=== PATIENT | female | born 1965 | race Caucasian/White ===

== ENCOUNTER 2018-03-31 20:59 | Observation (INO) ==
[2018-04-01] MEDS ORDERED: Ketamine Inj 200 MG/20 ML Vial IV.PUSH STA (00:14)
[2018-04-01] MEDS ORDERED: Sod Chloride 0.9% Inj 1,000 ML IV.SIG ONE (00:14)
--- NOTE | 2018-04-01 00:21 | ED ---
HPI General Chief Complaint: Abdominal Pain Stated Complaint: ABD Pain/GI Complaint Time Seen by Provider: 04/01/18 00:02 Source: patient History of Present Illness HPI narrative: Is a 52-year-old woman who presents emerged from complaining of abdominal pain. States the pain is been ongoing for the past 2 days or so. She has not had similar pain before. The pains in the upper abdomen, migrate some periods associated with nausea and vomiting. She also states that she has had some migration of the pain around the abdomen but sees mostly in the upper abdomen. She drinks heavily intermittently, little bit the day before this started. She has had some dark stools with this as well. No diarrhea. No history of any abdominal surgeries. No history of abdominal problems that she has had to see a doctor for. She otherwise had been feeling generally well and healthy prior to this. Related Data Home Medications Medication Instructions Recorded Confirmed buprenorphine-naloxone [Zubsolv] 5.7 mg SUBLINGUAL BID 03/31/18 03/31/18 Allergies Allergy/AdvReac Type Severity Reaction Status Date / Time No Known Allergies Allergy Uncoded 01/02/15 10:48 Review of Systems ROS Unobtainable All other systems reviewed negative except as stated in HPI [facility] Medical History Medical History Substance abuse (Acute) Surgical History Surgical History Status post surgical manipulation of ankle joint (Acute) Social History Social History Substance History: Past History Second Hand Smoke Exposure: Yes Smoking Status: Light tobacco smoker Tobacco Type: Cigarettes How Often Do You Have a Drink Containing Alcohol: 2 to 3 times a week Recent Travel in [facility] within the Last 8 Weeks: No Recent Out of Country Travel within the Last 8 Weeks: No Substance Abuse Detail Opiates: Substance Use Status: Early Remission Route Used Substance Abuse: By Mouth Immunization History Tetanus Immunization: Unsure Hx Influenza Vaccine This Season: No Exam Narrative Exam Narrative: GENERAL: Well-appearing 52-year-old woman, no acute distress. Some intermittent vomiting. SKIN: Focused skin assessment warm/dry. HEAD: Atraumatic. Normocephalic. EYES: Pupils equal and round. No scleral icterus. No injection or drainage. ENT: No nasal bleeding or discharge. Mucous membranes pink and moist. NECK: Trachea midline. No JVD. CARDIOVASCULAR: Regular rate and rhythm. No murmur appreciated. RESPIRATORY: No accessory muscle use. Clear to auscultation. Breath sounds equal bilaterally. GASTROINTESTINAL: Abdomen is flat and soft. Minimal epigastric right upper quadrant tenderness. No rebound. MUSCULOSKELETAL: No obvious deformities. No clubbing. No cyanosis. No edema. NEUROLOGICAL: Awake and alert. No obvious cranial nerve deficits. Motor grossly within normal limits. Normal speech. PSYCHIATRIC: Appropriate mood and affect; insight and judgment normal. Course Initial Documented Vital Signs Temperature 98.7 F 03/31/18 22:25 Pulse Rate 87 03/31/18 22:25 Respiratory Rate 16 03/31/18 22:25 Blood Pressure 159/76 H 03/31/18 22:25 Pulse Oximetry 99 03/31/18 22:25 Last Documented Vital Signs Temperature 98.7 F 03/31/18 22:25 Pulse Rate 76 03/31/18 22:27 Respiratory Rate 16 03/31/18 22:27 Blood Pressure 172/69 H 03/31/18 22:27 Pulse Oximetry 98 04/01/18 01:06 Medical Decision Making MDM Narrative Medical decision making narrative: 52-year-old woman with epigastric right upper quadrant abdominal pain, suspect pancreatitis. Cholecystitis seems less likely. Gastritis or peptic ulcer disease also possible. She looks well, despite intermittent retching. She is on a Suboxone preparation for history of substance abuse. Will do IV acetaminophen and sub-dissociative dose ketamine. Will do an ultrasound of her gallbladder, labs, reassess. Ultrasound shows a single mobile gallstone. No evidence of cholecystitis. Mildly prominent caliber of the common bile duct for patient this age. Etiology is uncertain pursuing bilirubin is normal probably physiologic. No perceptible duct stone. Patient was reassessed she stated that she felt better , she asked for crackers and something to drink. She was advised on findings, she became nervous and she stated that she would feel more secure knowing that the CAT scan was negative before she went home. She was concerned that her symptoms may return. Urinalysis resulted, urinalysis is consistent with a urinary tract infection. Reflex culture is pending. Patient will be given a gram of Rocephin at this time. CT of the abdomen and pelvis shows biliary and gallbladder distention concerning for distal common bile duct obstruction. Stricture small mass in the distal common bile duct just above the ampulla in the differential. GI referral and ERCP is recommended. Discussed this with my attending physician, Dr. Pace. Patient will be admitted. Dr. Aguilera accepted admit. Lab Data Lab results reviewed: Yes I reviewed the patient's lab results. Result diagrams: 04/01/18 00:46 04/01/18 00:46 Lab Results 04/01/18 04/01/18 04/01/18 Range/Units 00:46 00:46 02:23 WBC 11.7 H (4.0-11.0) th/mm3 RBC 4.79 (4.00-5.30) mil/mm3 Hgb 15.0 (11.6-15.3) gm/dL Hct 44.0 (35.0-46.0) % MCV 91.7 (80.0-100.0) fL MCH 31.3 (27.0-34.0) pg MCHC 34.1 (32.0-36.0) % RDW 13.0 (11.6-17.2) % Plt Count 384 (150-450) th/mm3 MPV 7.8 (7.0-11.0) fL Neut % (Auto) 84.1 H (16.0-70.0) % Lymph % (Auto) 11.8 (9.0-44.0) % [place] % (Auto) 3.5 (0.0-8.0) % Eos % (Auto) 0.2 (0.0-4.0) % Baso % (Auto) 0.4 (0.0-2.0) % Neut # (Auto) 9.8 H (1.8-7.7) th/mm3 Lymph # (Auto) 1.4 (1.0-4.8) th/mm3 [place] # (Auto) 0.4 (0.0-0.9) th/mm3 Eos # (Auto) 0.0 (0.0-0.4) th/mm3 Baso # (Auto) 0.0 (0.0-0.2) th/mm3 WBC Differential . Differential Comment Auto diff final Sodium 139 (136-145) meq/L Potassium 4.0 (3.5-5.1) meq/L Chloride 102 (98-107) meq/L Carbon Dioxide 23.1 (21.0-32.0) meq/L Anion Gap 14 (5-15) meq/L BUN 24 H (7-18) mg/dL Creatinine 0.85 (0.50-1.00) mg/dL Estimated GFR 70 L (>89) mL/min Random Glucose 99 (74-106) mg/dL Calcium 9.7 (8.5-10.1) mg/dL Total Bilirubin 0.4 (0.2-1.0) mg/dL AST 18 (15-37) U/L ALT 23 (10-53) U/L Alkaline Phosphatase 77 (45-117) U/L Total Protein 9.0 H (6.4-8.2) g/dL Albumin 4.6 (3.4-5.0) g/dL Lipase 118 (73-393) U/L Urine Color Yellow (Yellw/Straw) Urine Clarity Hazy H (Clear) Urine pH 5.0 (5.0-8.5) Ur Specific [place] 1.025 (1.002-1.035) Urine Protein 30 H (Neg-Trace) mg/dL Urine Glucose (UA) 50 (Negative) mg/dL Urine Ketones 80 or greater (Negative) mg/dL Urine Occult Blood Small H (Negative) Urine Nitrate Negative (Negative) Urine Bilirubin Negative (Negative) Urine Urobilinogen Less than 2 (Less than 2) mg/dL Ur Leukocyte Esterase Large H (Negative) Urine RBC 15 H (0-3) /hpf Urine WBC 78 H (0-5) /hpf Ur Squamous Epith Cells 2 (0-5) /hpf Hyaline Casts 15 (0-3) /lpf Waxy Casts 3 (None) /lpf Urine Mucus Few H (Occasional) /lpf Micro UA Comment Culture indicated Urine Culture Comments Culture indicated Imaging Data Radiologist's impression: ITS Impressions Gallbladder Ultrasound 04/01/18 00:14 CONCLUSION: 1. Single mobile gallstone. No evidence of cholecystitis. 2. Mildly prominent caliber of the common bile duct for a patient this age, etiology uncertain but assuming bilirubin is normal, probably physiologic. No perceptible duct stone. Abdomen/Pelvis CT 04/01/18 02:40 CONCLUSION: 1. Solitary gallstone. No evidence of cholecystitis. 2. Biliary and gallbladder distention of concern for distal common bile duct obstruction. Stricture or small mass of the distal common bile duct just above the ampulla are in the differential. Gastroenterology referral and ERCP recommended. Discharge Plan Discharge Disposition Patient Disposition: 30 Still Patient Discharge Condition Condition: Stable Discharge Details Discharge Problem: Common bile duct (CBD) obstruction, Nausea & vomiting Physicians Team ED Provider: Harvey Reddy ED Midlevel Provider: Rowan Andrade Primary Care Provider: Primary Care Candy Hay Rxs /Orders / Referrals /Forms Prescriptions: No Action buprenorphine-naloxone [Zubsolv] 5.7-1.4 mg Tablet, Sublingual 5.7 mg SUBLINGUAL BID RF: 0 Discharge Interventions Interventions: Vital Signs Last Done: 03/31/18 22:27 Status ED Status: With Doctor
[2018-04-01 00:53] LABS: Baso % (Auto) 0.4 % (0.0-2.0); Eos % (Auto) 0.2 % (0.0-4.0); Lymph # (Auto) 1.4 th/mm3 (1.0-4.8); Lymph % (Auto) 11.8 % (9.0-44.0); Mean Corpuscular HGB Conc 34.1 % (32.0-36.0); Mean Corpuscular Hemoglobin 31.3 pg (27.0-34.0); Mean Corpuscular Volume 91.7 fL (80.0-100.0); Mean Platelet Volume 7.8 fL (7.0-11.0); Mono # (Auto) 0.4 th/mm3 (0.0-0.9); Mono % (Auto) 3.5 % (0.0-8.0); Neut # (Auto) 9.8 th/mm3 (1.8-7.7); Neut % (Auto) 84.1 % (16.0-70.0); Platelet Count 384 th/mm3 (150-450); Red Blood Count 4.79 mil/mm3 (4.00-5.30); White Blood Count 11.7 th/mm3 (4.0-11.0)
[2018-04-01 01:39] LABS: Alanine Aminotransferase 23 U/L (10-53); Albumin 4.6 g/dL (3.4-5.0); Alkaline Phosphatase 77 U/L (45-117); Anion Gap 14 meq/L (5-15); Aspartate Aminotransferase 18 U/L (15-37); Blood Urea Nitrogen 24 mg/dL (7-18); Calcium 9.7 mg/dL (8.5-10.1); Carbon Dioxide 23.1 meq/L (21.0-32.0); Chloride 102 meq/L (98-107); Glomerular Filtration Rate 70 mL/min (>89); Glucose,Random 99 mg/dL (74-106); Lipase 118 U/L (73-393); Sodium 139 meq/L (136-145)
--- NOTE | 2018-04-01 02:15 | US ---
EXAM DATE: 04/01/2018 1:59 AM EDT AGE/SEX: 52 years / Female INDICATIONS: Right upper quadrant pain. CLINICAL DATA: This is the patient's initial encounter. Patient reports that signs and/or symptoms h ave been present for 2 days and indicates a pain score of 2/10. MEDICAL/SURGICAL HISTORY: . Substance abuse. . Right ankle surgery. COMPARISON: No prior exams available for comparison. MEASUREMENTS: Liver:__ 13.7 cm. Common Bile Duct:__ 7mm. FINDINGS: Liver: Normal echotexture without focal lesion or ductal dilatation. Portal Vein: Hepatopedal flow seen in portal vein. Common Duct: No intraluminal mass or stone visualized. Gallbladder: 16mm mobile stones present within the gallbladder lumen. No wall thickening or perichol ecystic fluid. Pancreas: The visualized portions are within normal limits Right Kidney: Normal echotexture and cortical thickness. No mass or hydronephrosis. Other: None. CONCLUSION: 1. Single mobile gallstone. No evidence of cholecystitis. 2. Mildly prominent caliber of the common bile duct for a patient this age, etiology uncertain but a ssuming bilirubin is normal, probably physiologic. No perceptible duct stone. Electronically signed by: Gray Sam MD 04/01/2018 2:14 AM EDT
[2018-04-01 02:42] LABS: Bilirubin,Urine Negative (Negative); Clarity,Urine Hazy (Clear); Color,Urine Yellow (Yellw/Straw); Glucose,Urine (UA) 50 mg/dL (Negative); Hyaline Casts,Urine 15 /lpf (0-3); Leukocyte Esterase,Urine Large (Negative); Mucus,Urine Few /lpf (Occasional); Nitrite,Urine Negative (Negative); Specific Gravity,Urine 1.025 (1.002-1.035); Squamous Epithelial Cell,Urine 2 /hpf (0-5)
[2018-04-01] MEDS ORDERED: Iohexol 300 MG/ML 100 ML Vial (for Rad CT) IVCONTRAST ONE (02:58)
--- NOTE | 2018-04-01 03:16 | CT ---
EXAM DATE: 04/01/2018 3:00 AM EDT AGE/SEX: 52 years / Female INDICATIONS: Right upper quadrant pain. CLINICAL DATA: This is the patient's initial encounter. Patient reports that signs and symptoms have been present for 1 day and indicates a pain score of 5/10. MEDICAL/SURGICAL HISTORY: None. None. ORAL CONTRAST: No oral contrast ingested. RADIATION DOSE: 6.64 CTDI (mGy) COMPARISON: [facility] [place] - GALLBLADDER, 04/01/2018. . TECHNIQUE: Multiple contiguous axial images were obtained through the abdomen and pelvis following b olus infusion of 95 ml Omnipaque 350 (iohexol) nonionic water-soluble contrast as a single exam dos e. No oral contrast ingested. Using automated exposure control and adjustment of the mA and/or kV ac cording to patient size, radiation dose was kept as low as reasonably achievable to obtain optimal di agnostic quality images. DICOM format image data is available electronically for review and comparis on. FINDINGS: 13 mm gallstone in the gallbladder. Gallbladder mildly distended. Prominent caliber common bile duct, approximately 12 mm at the distal edwardo hepatis. Mildly masslike induration seen just above the ampu lla, measures approximately 14 mm across. Distal duct stricture or mass conceivable. There is mild in trahepatic biliary distention. I don't see a duct stone. Pancreas and pancreatic duct within normal l imits. No liver lesion demonstrated. Spleen, adrenal glands and kidneys within normal limits. No obstruction or acute inflammatory changes are seen of the gastrointestinal tract. Appendix well-vi sualized, normal. No free fluid or free air. No lymphadenopathy. Visualized lung bases are clear. No acute bony abnormality demonstrated. CONCLUSION: 1. Solitary gallstone. No evidence of cholecystitis. 2. Biliary and gallbladder distention of concern for distal common bile duct obstruction. Stricture or small mass of the distal common bile duct just above the ampulla are in the differential. Gastroen terology referral and ERCP recommended. Electronically signed by: Gray Sam MD 04/01/2018 3:15 AM EDT
[2018-04-01] MEDS ORDERED: Ketorolac Inj 30 MG/ML (IVP) Vial IV.PUSH ONE (04:13)
[2018-04-01] MEDS ORDERED: Bisacodyl 10 MG Supp RECTAL PRN (05:05)
[2018-04-01] MEDS ORDERED: Sincalide Inj 5 MCG Vial IV.PUSH ONE (05:06)
[2018-04-01] MEDS ORDERED: Sod Chloride 0.9% Inj 1,000 ML IV.CONT SCH (05:15)
[2018-04-01] MEDS ORDERED: Acetaminophen 325 MG Tablet PO PRN (07:29)
--- NOTE | 2018-04-01 09:23 | P.CONGI ---
History of Present Illness Consult date: 04/01/18 Consult reason: Abdominal pain, melena stools 3 days ago Chief complaint: Obstruction of Common Bile Duct History of Present Illness: This is a 52-year-old female who came into the hospital on 03/31/2018 with abdominal pain onset 3 days now, positive for nausea and vomiting, and does note some melena stools 3 days before admission. Patient also notes some chest discomfort which she now thinks may be dyspepsia 10 days before admission. Patient denies any diarrhea or constipation and has been afebrile since admission. Current labs show hemoglobin 15, WBC count 11.7, lipase and LFTs normal ranges. Patient does note heavy consumption of alcohol for the past 30 years and does smoke cigarettes when she is drinking approximately a half pack a day noted for many years. Patient states she also has marijuana usage and cocaine several days ago to help relieve the pain. Patient does have a history of opioid usage but states none now. Gallbladder ultrasound performed on 2017 showed no cholecystitis but positive for gallstone. CT of abdomen pelvis did show positive biliary and gallbladder distention. Patient denies any family history of colon cancer and according to the record no previous abdominal surgeries. No history of EGD or colonoscopy ever performed. <Sonya Skaggs - Last Filed: 04/01/18 09:23> Review of Systems All other systems reviewed negative except as stated in HPI <Sonya Skaggs - Last Filed: 04/01/18 09:23> PMFSH - History History Provided By: Patient - Medical History Medical History: Medical History (Last Reviewed 04/01/18 @ 00:20 by Harvey Reddy MD) Substance abuse - Surgical History Surgical History: Surgical History (Last Reviewed 04/01/18 @ 00:20 by Harvey Reddy MD) Status post surgical manipulation of ankle joint - Tobacco History Second Hand Smoke Exposure: Yes Tobacco Use In Past 30 Days: Yes Smoking Status: Light tobacco smoker Tobacco Type: Cigarettes - Alcohol History How Often Do You Have a Drink Containing Alcohol: 2 to 3 times a week - Substance Use History Substance History: Past History - Substance Use Type Opiates Status: Early Remission Route Used: By Mouth - Travel History Recent Travel in the [place] Within the Last 8 Weeks: No Recent Travel Out of the Country Within the Last 8 Weeks: No - Immunization History Tetanus Immunization: Unsure Hx Influenza Vaccine This Season: No <Sonya kSaggs - Last Filed: 04/01/18 09:23> - Medical History Medical History: Medical History (Last Reviewed 04/01/18 @ 00:20 by Harvey Reddy MD) Substance abuse - Surgical History Surgical History: Surgical History (Last Reviewed 04/01/18 @ 00:20 by Harvey Reddy MD) Status post surgical manipulation of ankle joint <Ara Morales - Last Filed: 04/01/18 15:26> Medications and Allergies Active Medications: Active Medications Acetaminophen (Tylenol) 650 mg PO Q6H PRN PRN Reason: PAIN SCALE 1-10 Al Hydroxide/Mg Hydroxide (Milk Of Magnesia Liq) 30 ml PO Q12H PRN PRN Reason: Mild Constipation Bisacodyl (Dulcolax Supp) 10 mg RECTAL DAILY PRN PRN Reason: SEVERE CONSITIPATION Ceftriaxone Sodium 1,000 mg/ (Sodium Chloride) 100 mls @ 200 mls/hr IV.SIG Q24H ANTONIO Sodium Chloride (Ns Inj) 1,000 mls @ 100 mls/hr IV.CONT .Q10H ANTONIO Lactulose (Lactulose Liq) 30 ml PO DAILY PRN PRN Reason: SEVERE CONSITIPATION Metoclopramide HCl (Reglan Inj) 5 mg IV.PUSH Q6HR PRN; Protocol PRN Reason: NAUSEA OR VOMITING Sennosides (Senokot) 17.2 mg PO Q12H PRN PRN Reason: Moderate Constipation Sodium Chloride (Ns Flush) 2 ml IV.FLUSH PRN PRN PRN Reason: FLUSH AFTER USING IV ACCESS Last Admin: 04/01/18 00:59 Dose: 2 ml Temazepam (Restoril) 15 mg PO HS PRN PRN Reason: INSOMNIA <Sonya Skaggs - Last Filed: 04/01/18 09:23> Active Medications: Active Medications Acetaminophen (Tylenol) 650 mg PO Q6H PRN PRN Reason: PAIN SCALE 1-2 Al Hydroxide/Mg Hydroxide (Milk Of Magnesia Liq) 30 ml PO Q12H PRN PRN Reason: Mild Constipation Bisacodyl (Dulcolax Supp) 10 mg RECTAL DAILY PRN PRN Reason: SEVERE CONSITIPATION Enalaprilat (Vasotec Inj) 1.25 mg IV.PUSH Q8H PRN PRN Reason: SBP >160, DBP >80 Flumazenil (Romazecon Inj) 0.2 mg IV.PUSH Q1M PRN PRN Reason: OVERSEDATION Haloperidol Lactate (Haldol Inj) 1 mg IV.PUSH Q15M PRN PRN Reason: for severe agitation Ceftriaxone Sodium 1,000 mg/ (Sodium Chloride) 100 mls @ 200 mls/hr IV.SIG Q24H ANTONIO Sodium Chloride (Ns Inj) 1,000 mls @ 100 mls/hr IV.CONT .Q10H ANTONIO Last Admin: 04/01/18 09:25 Dose: 100 mls/hr Ketorolac Tromethamine (Toradol Inj) 15 mg IV.PUSH Q6H PRN PRN Reason: PAIN 6-10 Stop: 04/05/18 09:00 Lactulose (Lactulose Liq) 30 ml PO DAILY PRN PRN Reason: SEVERE CONSITIPATION Lorazepam (Ativan) 1 mg PO Q4H PRN PRN Reason: for CIWA 8-10 Lorazepam (Ativan Inj) 2 mg IV.PUSH Q2H PRN PRN Reason: for CIWA 11-14 Lorazepam (Ativan Inj) 2 mg IV.PUSH Q1H PRN PRN Reason: for CIWA 15-20 Lorazepam (Ativan Inj) 2 mg IV.PUSH Q15M PRN PRN Reason: for CIWA > 20 Lorazepam (Ativan Inj) 1 mg IV.PUSH Q4H PRN PRN Reason: for CIWA 8-10 Lorazepam (Ativan) 2 mg PO Q2H PRN PRN Reason: for CIWA 11-14 Metoclopramide HCl (Reglan Inj) 5 mg IV.PUSH Q6HR PRN; Protocol PRN Reason: NAUSEA OR VOMITING Ondansetron HCl (Zofran Odt) 4 mg PO Q8H PRN PRN Reason: NAUSEA OR VOMITING Pantoprazole Sodium (Protonix Inj) 40 mg IV.PUSH Q24H ANTONIO Sennosides (Senokot) 17.2 mg PO Q12H PRN PRN Reason: Moderate Constipation Sodium Chloride (Ns Flush) 2 ml IV.FLUSH PRN PRN PRN Reason: FLUSH AFTER USING IV ACCESS Last Admin: 04/01/18 00:59 Dose: 2 ml Temazepam (Restoril) 15 mg PO HS PRN PRN Reason: INSOMNIA <Ara Morales - Last Filed: 04/01/18 15:26> Allergies Allergy/AdvReac Type Severity Reaction Status Date / Time No Known Allergies Allergy Uncoded 01/02/15 10:48 Home Medications Medication Instructions Recorded Confirmed Type buprenorphine-naloxone [Zubsolv] 5.7 mg SUBLINGUAL BID 03/31/18 03/31/18 History Exam Vital signs: Vital Signs 03/31/18 22:25 03/31/18 22:27 04/01/18 01:06 Temperature 98.7 F Pulse Rate 87 76 Respiratory Rate 16 16 Blood Pressure 159/76 H 172/69 H Pulse Oximetry 99 96 98 04/01/18 06:36 04/01/18 08:00 Temperature 98.0 F 98.7 F Pulse Rate 58 L 64 Respiratory Rate 17 18 Blood Pressure 148/65 H 133/62 Pulse Oximetry 99 96 Intake & Output 03/31/18 04/01/18 04/01/18 18:59 06:59 18:59 Weight 81 kg Other: # Voids 1 - Constitutional mild distress - Routine HEENT Exam Head: Present: normocephalic, atraumatic Eye: Present: EOMI ENT: Present: mucous membranes moist - Routine Neck Exam Present: supple - Routine Chest/Breast/Axilla Exam Chest wall: Present: tenderness (Mild) - Routine Respiratory Exam Present: CTA bilaterally - Routine Cardiovascular Exam Present: RRR - Routine Abdominal Exam Present: soft, normoactive bowel sounds (Soft), distended (Mild minimal) - Routine Extremities Exam Present: pulses intact - Routine Skin Exam Present: intact - Routine Neurological Exam Present: alert, oriented X3 <Sonya Skaggs - Last Filed: 04/01/18 09:23> Vital signs: Vital Signs 03/31/18 22:25 03/31/18 22:27 04/01/18 01:06 Temperature 98.7 F Pulse Rate 87 76 Respiratory Rate 16 16 Blood Pressure 159/76 H 172/69 H Pulse Oximetry 99 96 98 04/01/18 06:36 04/01/18 08:00 Temperature 98.0 F 98.7 F Pulse Rate 58 L 64 Respiratory Rate 17 18 Blood Pressure 148/65 H 133/62 Pulse Oximetry 99 96 Intake & Output 03/31/18 04/01/18 04/01/18 18:59 06:59 18:59 Weight 81 kg Other: # Voids 1 <Ara Morales - Last Filed: 04/01/18 15:26> Results - Labs CBC & Chem 7: 04/01/18 00:46 04/01/18 00:46 Labs: Laboratory Results - last 24 hr 04/01/18 04/01/18 04/01/18 00:46 00:46 02:23 WBC 11.7 H RBC 4.79 Hgb 15.0 Hct 44.0 MCV 91.7 MCH 31.3 MCHC 34.1 RDW 13.0 Plt Count 384 MPV 7.8 Neut % (Auto) 84.1 H Lymph % (Auto) 11.8 [place] % (Auto) 3.5 Eos % (Auto) 0.2 Baso % (Auto) 0.4 Neut # (Auto) 9.8 H Lymph # (Auto) 1.4 Eagle # (Auto) 0.4 Eos # (Auto) 0.0 Baso # (Auto) 0.0 WBC Differential . Differential Comment Auto diff final Sodium 139 Potassium 4.0 Chloride 102 Carbon Dioxide 23.1 Anion Gap 14 BUN 24 H Creatinine 0.85 Estimated GFR 70 L Random Glucose 99 Calcium 9.7 Total Bilirubin 0.4 AST 18 ALT 23 Alkaline Phosphatase 77 Total Protein 9.0 H Albumin 4.6 Lipase 118 Urine Color Yellow Urine Clarity Hazy H Urine pH 5.0 Ur Specific [place] 1.025 Urine Protein 30 H Urine Glucose (UA) 50 Urine Ketones 80 or greater Urine Occult Blood Small H Urine Nitrate Negative Urine Bilirubin Negative Urine Urobilinogen Less than 2 Ur Leukocyte Esterase Large H Urine RBC 15 H Urine WBC 78 H Ur Squamous Epith Cells 2 Hyaline Casts 15 Waxy Casts 3 Urine Mucus Few H Micro UA Comment Culture indicated Urine Culture Comments Culture indicated - Imaging Impressions Gallbladder Ultrasound 04/01/18 00:14 CONCLUSION: 1. Single mobile gallstone. No evidence of cholecystitis. 2. Mildly prominent caliber of the common bile duct for a patient this age, etiology uncertain but assuming bilirubin is normal, probably physiologic. No perceptible duct stone. Abdomen/Pelvis CT 04/01/18 02:40 CONCLUSION: 1. Solitary gallstone. No evidence of cholecystitis. 2. Biliary and gallbladder distention of concern for distal common bile duct obstruction. Stricture or small mass of the distal common bile duct just above the ampulla are in the differential. Gastroenterology referral and ERCP recommended. <GilesSonya M - Last Filed: 04/01/18 09:23> - Labs CBC & Chem 7: 04/01/18 00:46 04/01/18 00:46 Labs: Laboratory Results - last 24 hr 04/01/18 04/01/18 04/01/18 00:46 00:46 02:23 WBC 11.7 H RBC 4.79 Hgb 15.0 Hct 44.0 MCV 91.7 MCH 31.3 MCHC 34.1 RDW 13.0 Plt Count 384 MPV 7.8 Neut % (Auto) 84.1 H Lymph % (Auto) 11.8 [place] % (Auto) 3.5 Eos % (Auto) 0.2 Baso % (Auto) 0.4 Neut # (Auto) 9.8 H Lymph # (Auto) 1.4 [place] # (Auto) 0.4 Eos # (Auto) 0.0 Baso # (Auto) 0.0 WBC Differential . Differential Comment Auto diff final Sodium 139 Potassium 4.0 Chloride 102 Carbon Dioxide 23.1 Anion Gap 14 BUN 24 H Creatinine 0.85 Estimated GFR 70 L Random Glucose 99 Calcium 9.7 Total Bilirubin 0.4 AST 18 ALT 23 Alkaline Phosphatase 77 Total Protein 9.0 H Albumin 4.6 Lipase 118 Urine Color Yellow Urine Clarity Hazy H Urine pH 5.0 Ur Specific [place] 1.025 Urine Protein 30 H Urine Glucose (UA) 50 Urine Ketones 80 or greater Urine Occult Blood Small H Urine Nitrate Negative Urine Bilirubin Negative Urine Urobilinogen Less than 2 Ur Leukocyte Esterase Large H Urine RBC 15 H Urine WBC 78 H Ur Squamous Epith Cells 2 Hyaline Casts 15 Waxy Casts 3 Urine Mucus Few H Micro UA Comment Culture indicated Urine Culture Comments Culture indicated - Imaging Impressions Bile Acid Absorption NM 04/01/18 00:00 CONCLUSION: 1. Unremarkable HIDA scan with a gallbladder ejection fraction of approximately 50%. 2. There is evidence of some bile reflux. Cholangiopancreatography MRI 04/01/18 00:00 CONCLUSION: 1. There is a gallstone in the gallbladder. The gallbladder is somewhat dilated. 2. There is some dilatation of the common bile duct measuring 9 mm with some mildly dilated biliary ducts. This suggests some degree of biliary tract obstruction. Recommend ERCP for further evaluation. Gallbladder Ultrasound 04/01/18 00:14 CONCLUSION: 1. Single mobile gallstone. No evidence of cholecystitis. 2. Mildly prominent caliber of the common bile duct for a patient this age, etiology uncertain but assuming bilirubin is normal, probably physiologic. No perceptible duct stone. Abdomen/Pelvis CT 04/01/18 02:40 CONCLUSION: 1. Solitary gallstone. No evidence of cholecystitis. 2. Biliary and gallbladder distention of concern for distal common bile duct obstruction. Stricture or small mass of the distal common bile duct just above the ampulla are in the differential. Gastroenterology referral and ERCP recommended. <Ara Morales - Last Filed: 04/01/18 15:26> Assessment and Plan (1) Abdominal pain Status: Acute Code(s): R10.9 - Unspecified abdominal pain (2) Common bile duct (CBD) obstruction Status: Acute Code(s): K83.1 - Obstruction of bile duct (3) Nausea & vomiting Status: Acute Code(s): R11.2 - Nausea with vomiting, unspecified - Plan Dyspepsia, onset approximately 10 days ago which was a pressure sensation in her chest. Never felt this before Melena stools history of 3 days before admission. none currently at this time Abdominal pain onset 3 days ago associated with nausea and vomiting. Patient denies any diarrhea or constipation , afebrile No family history of colon cancer or patient EGD or colonoscopy. Current labs show leukocytosis, possibly related to urinary tract infection with positive urine noted. Hemoglobin 15., lipase and LFTs normal Note ultrasound of the gallbladder showed no: Cystitis but did note gallstones Abdominal pelvic CT did show biliary and gallbladder distention There is a HIDA scan pending but did discuss with attending the need for MRCP to rule out biliary distention or partial obstruction. Patient is hungry and thirsty, May trial clear liquids after testing completed if no current nausea or vomiting Plan Diet n.p.o. for now, Antiemetics PPI Bowel regimen as needed MRCP today Discussed alcohol and drug dependence and abstinence Further recommendations to follow, due to recent history of melena stools and dyspepsia patient may need EGD. Timing TBA Patient was seen per myself and Dr. Morales, this note was written on her behalf <GilesSonya - Last Filed: 04/01/18 09:23> (1) Abdominal pain Status: Acute Code(s): R10.9 - Unspecified abdominal pain (2) Common bile duct (CBD) obstruction Status: Acute Code(s): K83.1 - Obstruction of bile duct (3) Nausea & vomiting Status: Acute Code(s): R11.2 - Nausea with vomiting, unspecified - Attending Attestation The exam, history, and the medical decision-making described in the above note were completed with the assistance of the mid-level provider. I reviewed and agree with the findings presented. I attest that I had a [id number] encounter with the patient on the same day, and personally performed and documented my assessment and findings in the medical record. seen, examined agree with above mrcp, carlos noted -no cbd obstruction or stone discussed about possible ERCP with her -she would like to try some food consult general surgery monitor lfts ercp/eus in vs op depends on clinical scenario <Ara Morales - Last Filed: 04/01/18 15:26> <Sonya Skaggs M - Last Filed: 04/01/18 09:23> (3) Nausea & vomiting Qualifiers: Vomiting type: unspecified Vomiting Intractability: non-intractable Qualified Code(s): R11.2 - Nausea with vomiting, unspecified <Ara Morales - Last Filed: 04/01/18 15:26> (1) Abdominal pain Qualifiers: Abdominal location: unspecified location Qualified Code(s): R10.9 - Unspecified abdominal pain (3) Nausea & vomiting Qualifiers: Vomiting type: unspecified Vomiting Intractability: non-intractable Qualified Code(s): R11.2 - Nausea with vomiting, unspecified
--- NOTE | 2018-04-01 09:38 | P.HP ---
History of Present Illness Service: [facility] Primary Care Physician: No Primary Care Physician Chief Complaint: abdominal pain History of Present Illness: Mrs. Connelly is a 52 yo F with H substance abuse, alcohol abuse who presents with abdominal pain. Patient states that the abdominal pain started 2.5 days ago and was associated with nausea/vomiting. It started suddenly and she does not think it was associated with oral intake. Patient has not had BM for 3 days. No fevers or chills. She has not had prior abdominal surgery. Patient reports smoking 1/2 PPD. Patient reports sometimes drinking 10 beers a day; she also has been doing cocaine occasionally. She receives opiate agonist/ antagonist from pain clinic currently; no recent opiate abuse. Patient reports chest pain with activity 1.5 weeks ago but not since. Normal respirations. Patient occasionally has urinary frequency with alcohol intake but no dysuria. Interval history: Patient with HTN on admission but otherwise normal VS. CBC with mild leukocytosis, UA suggestive of UTI, CMP unremarkable. Gallbladder US showed stone; CT abdomen/pelvis suggestive of common duct pathology. Patient reports that her pain is now resolved after Toradol in ED - Diagnosis (1) Abdominal pain (2) Substance abuse Inpatient Certification: I certify that the inpatient services were ordered in accordance with Medicare regulations governing the order. This includes certification that hospital inpatient services are reasonable and necessary and in the case of services not specified as inpatient-only under 42 CFR 419.22(n), that they are appropriately provided as inpatient services in accordance to with the 2-midnight benchmark under 43 CFR 412.3(e) Review of Systems Constitutional: Denies chills, Denies fatigue, Denies fever(s) Eyes: Denies blurry vision, Denies dry eyes Ears, Nose, Mouth, and Throat: Denies difficulty swallowing, Denies dizziness Cardiovascular: Denies chest pain (1.5 weeks ago, not since), Denies lightheadedness Respiratory: Denies shortness of breath, Denies wheezing Gastrointestinal: Reports abdominal pain, Denies incontinent of stools Genitourinary: Reports urinary urgency, Denies painful urination Musculoskeletal: Denies abnormal walking, Denies joint pain Skin/Breast: Denies breast pain, Denies change in skin color Neurologic: Denies abnormal movements, Denies frequent falls Psychiatric: Reports other (patient tearful recalling past; interested in psych resources on discharge), Denies memory loss Endocrine: Reports increased urination, Denies cold intolerance Hematologic/Lymphatic: Denies easy bleeding, Denies easy bruising PMFSH - History History Provided By: Patient - Medical History Medical History: Medical History (Last Reviewed 04/01/18 @ 00:20 by Harvey Reddy MD) Substance abuse - Surgical History Surgical History: Surgical History (Last Updated 04/01/18 @ 11:18 by To Liu MD) Status post surgical manipulation of ankle joint - Tobacco History Second Hand Smoke Exposure: Yes Tobacco Use In Past 30 Days: Yes Smoking Status: Light tobacco smoker Tobacco Type: Cigarettes - Alcohol History How Often Do You Have a Drink Containing Alcohol: 2 to 3 times a week - Substance Use History Substance History: Past History - Substance Use Type Opiates Status: Early Remission Route Used: By Mouth - Travel History Recent Travel in the [facility] Within the Last 8 Weeks: No Recent Travel Out of the Country Within the Last 8 Weeks: No - Immunization History Tetanus Immunization: Unsure Hx Influenza Vaccine This Season: No Medications and Allergies Active Medications: Active Medications Acetaminophen (Tylenol) 650 mg PO Q6H PRN PRN Reason: PAIN SCALE 1-10 Al Hydroxide/Mg Hydroxide (Milk Of Magnesia Liq) 30 ml PO Q12H PRN PRN Reason: Mild Constipation Bisacodyl (Dulcolax Supp) 10 mg RECTAL DAILY PRN PRN Reason: SEVERE CONSITIPATION Ceftriaxone Sodium 1,000 mg/ (Sodium Chloride) 100 mls @ 200 mls/hr IV.SIG Q24H ANTONIO Sodium Chloride (Ns Inj) 1,000 mls @ 100 mls/hr IV.CONT .Q10H ANTONIO Last Admin: 04/01/18 09:25 Dose: 100 mls/hr Lactulose (Lactulose Liq) 30 ml PO DAILY PRN PRN Reason: SEVERE CONSITIPATION Metoclopramide HCl (Reglan Inj) 5 mg IV.PUSH Q6HR PRN; Protocol PRN Reason: NAUSEA OR VOMITING Sennosides (Senokot) 17.2 mg PO Q12H PRN PRN Reason: Moderate Constipation Sodium Chloride (Ns Flush) 2 ml IV.FLUSH PRN PRN PRN Reason: FLUSH AFTER USING IV ACCESS Last Admin: 04/01/18 00:59 Dose: 2 ml Temazepam (Restoril) 15 mg PO HS PRN PRN Reason: INSOMNIA Allergies Allergy/AdvReac Type Severity Reaction Status Date / Time No Known Allergies Allergy Uncoded 01/02/15 10:48 Home Medications Medication Instructions Recorded Confirmed Type buprenorphine-naloxone [Zubsolv] 5.7 mg SUBLINGUAL BID 03/31/18 03/31/18 History Exam Vital signs: Vital Signs 03/31/18 22:25 03/31/18 22:27 04/01/18 01:06 Temperature 98.7 F Pulse Rate 87 76 Respiratory Rate 16 16 Blood Pressure 159/76 H 172/69 H Pulse Oximetry 99 96 98 04/01/18 06:36 04/01/18 08:00 Temperature 98.0 F 98.7 F Pulse Rate 58 L 64 Respiratory Rate 17 18 Blood Pressure 148/65 H 133/62 Pulse Oximetry 99 96 Intake & Output 03/31/18 04/01/18 04/01/18 18:59 06:59 18:59 Weight 81 kg Other: # Voids 1 Narrative: Gen: No distress Eyes: EOM grossly I Skin: No visible jaundice or other pathology CV: Regular rate and rhythm; Grossly normal perfusion. Resp: CTAB; normal rate Abd: soft, nontender. Normal liver span MSK: No calf tenderness or leg asymmetry Neuro: Grossly normal CN; grossly normal peripheral motor/sensory function Psych: intermittently tearful during exam; suggests possible depression but states that she does not want to address currently Results - Labs CBC & Chem 7: 04/01/18 00:46 04/01/18 00:46 Labs: Laboratory Results - last 24 hr 04/01/18 04/01/18 04/01/18 00:46 00:46 02:23 WBC 11.7 H RBC 4.79 Hgb 15.0 Hct 44.0 MCV 91.7 MCH 31.3 MCHC 34.1 RDW 13.0 Plt Count 384 MPV 7.8 Neut % (Auto) 84.1 H Lymph % (Auto) 11.8 [place] % (Auto) 3.5 Eos % (Auto) 0.2 Baso % (Auto) 0.4 Neut # (Auto) 9.8 H Lymph # (Auto) 1.4 [place] # (Auto) 0.4 Eos # (Auto) 0.0 Baso # (Auto) 0.0 WBC Differential . Differential Comment Auto diff final Sodium 139 Potassium 4.0 Chloride 102 Carbon Dioxide 23.1 Anion Gap 14 BUN 24 H Creatinine 0.85 Estimated GFR 70 L Random Glucose 99 Calcium 9.7 Total Bilirubin 0.4 AST 18 ALT 23 Alkaline Phosphatase 77 Total Protein 9.0 H Albumin 4.6 Lipase 118 Urine Color Yellow Urine Clarity Hazy H Urine pH 5.0 Ur Specific Rembrandt 1.025 Urine Protein 30 H Urine Glucose (UA) 50 Urine Ketones 80 or greater Urine Occult Blood Small H Urine Nitrate Negative Urine Bilirubin Negative Urine Urobilinogen Less than 2 Ur Leukocyte Esterase Large H Urine RBC 15 H Urine WBC 78 H Ur Squamous Epith Cells 2 Hyaline Casts 15 Waxy Casts 3 Urine Mucus Few H Micro UA Comment Culture indicated Urine Culture Comments Culture indicated - Imaging Impressions Gallbladder Ultrasound 04/01/18 00:14 CONCLUSION: 1. Single mobile gallstone. No evidence of cholecystitis. 2. Mildly prominent caliber of the common bile duct for a patient this age, etiology uncertain but assuming bilirubin is normal, probably physiologic. No perceptible duct stone. Abdomen/Pelvis CT 04/01/18 02:40 CONCLUSION: 1. Solitary gallstone. No evidence of cholecystitis. 2. Biliary and gallbladder distention of concern for distal common bile duct obstruction. Stricture or small mass of the distal common bile duct just above the ampulla are in the differential. Gastroenterology referral and ERCP recommended. Caprini VTE Risk Assessment Caprini VTE Risk Assessment: Moderate/High Risk (score >= 2) Caprini Risk Assessment Model: Point Value = 1 Point Value = 2 Point Value = 3 Point Value = 5 Age 41-60 Minor surgery BMI > 25 kg/m2 Swollen legs Varicose veins or History of unexplained or recurrent spontaneous Oral contraceptives or hormone replacement Sepsis (< 1 month) Serious lung disease, including pneumonia (< 1 month) Abnormal pulmonary function Acute myocardial infarction Congestive heart failure (< 1 month) History of inflammatory bowel disease Medical patient at bed rest Age 61-74 Arthroscopic surgery Major open surgery (> 45 min) Laparoscopic surgery (> 45 min) Malignancy Confined to bed (> 72 hours) Immobilizing plaster cast Central venous access Age >= 75 History of VTE Family history of VTE Factor V Leiden Prothrombin [id number] Lupus anticoagulant Anticardiolipin antibodies Elevated serum homocysteine Heparin-induced thrombocytopenia Other congenital or acquired thrombophilia Stroke (< 1 month) Elective arthroplasty Hip, pelvis, or leg fracture Acute spinal cord injury (< 1 month) Prophylaxis Regimen: Total Risk Factor Score Risk Level Prophylaxis Regimen 0-1 Low Early ambulation 2 Moderate Order ONE of the following: *Sequential Compression Device (SCD) *Heparin 5000 units SQ BID 3-4 Higher Order ONE of the following medications: *Heparin 5000 units SQ TID *Enoxaparin/Lovenox 40 mg SQ daily (WT < 150 kg, CrCl > 30 mL/min) *Enoxaparin/Lovenox 30 mg SQ daily (WT < 150 kg, CrCl > 10-29 mL/min) *Enoxaparin/Lovenox 30 mg SQ BID (WT < 150 kg, CrCl > 30 mL/min) AND/OR *Sequential Compression Device (SCD) 5 or more Highest Order ONE of the following medications: *Heparin 5000 units SQ TID (Preferred with Epidurals) *Enoxaparin/Lovenox 40 mg SQ daily (WT < 150 kg, CrCl > 30 mL/min) *Enoxaparin/Lovenox 30 mg SQ daily (WT < 150 kg, CrCl > 10-29 mL/min) *Enoxaparin/Lovenox 30 mg SQ BID (WT < 150 kg, CrCl > 30 mL/min) AND *Sequential Compression Device (SCD) Assessment and Plan - Assessment (1) Abdominal pain Code(s): R10.9 - Unspecified abdominal pain Status: Acute (2) Substance abuse Code(s): F19.10 - Other psychoactive substance abuse, uncomplicated Status: Chronic - Plan Abdominal pain Impression: Sudden onset; PMH alcohol abuse. Gallbladder US with stone; not suggestive of cholecystitis. A/P CT with biliary/ gallbladder distension concerning for distal bile duct obstruction. ?stricture or small mass above ampulla CBC w/ mild leukocytosis; CMP unremarkable -GI consulted -Will check MRCP -Will keep NPO -Will give maintenance NS for IVF -Will give PRN Toradol if pain recurs Alcohol abuse Impression: Low likelihood withdrawal b/c binge drinker w/o history -Will add CIWA UA abnormal Impression: UA with large leuk esterase, 78 WBC -Culture pending -Continue Rocephin Substance abuse Impression: Will plan for CM discussion about resources before discharge Tearful -Patient agreed to discuss further regarding psych f/u as an outpatient DVT PPX -Will give SCD's until it is seen whether any surgery/ERCP needed Code Status: Full code Discharge Planning: Pending GI work-up (1) Abdominal pain Qualifiers: Abdominal location: unspecified location Qualified Code(s): R10.9 - Unspecified abdominal pain
[2018-04-01] MEDS ORDERED: LORazepam 1 MG Tablet PO PRN (11:34)
[2018-04-01] MEDS ORDERED: Haloperidol Inj 5 MG/ML Ampul IV.PUSH PRN (11:34)
--- NOTE | 2018-04-01 11:44 | MR ---
EXAM DATE: 04/01/2018 11:06 AM EDT AGE/SEX: 52 years / Female INDICATIONS: Abdominal pain. CLINICAL DATA: This is the patient's initial encounter. Patient reports that signs and symptoms have been present for 3 days and indicates a pain score of 5/10. MEDICAL/SURGICAL HISTORY: None. . Right ankle. [place] [facility] [place] 04/01/[place]. . TECHNIQUE: Multiplanar, multisequence images of the abdomen were obtained without contrast including dedicated cholangiographic images. FINDINGS: Liver: The liver is homogeneous and normal in signal intensity with no focal defects. Intrahepatic Bile Ducts: There is mild intrahepatic biliary ductal dilatation. Common Bile Duct: The common bile duct is mildly dilated in caliber No filling defects or definite obstructing lesions are identified. The common bile duct measures approximately 9 mm in diameter. Gallbladder: The gallbladder appears to be somewhat distended. There is a gallstone in the base of t he gallbladder. The gallbladder wall is not thickened. There is no surrounding inflammatory changes. Pancreas: The pancreas appears normal in signal with no focal parenchymal abnormalities. The pancrea tic duct is normal in caliber with no filling defects, or obstructing lesions identified. CONCLUSION: 1. There is a gallstone in the gallbladder. The gallbladder is somewhat dilated. 2. There is some dilatation of the common bile duct measuring 9 mm with some mildly dilated biliary ducts. This suggests some degree of biliary tract obstruction. Recommend ERCP for further evaluation. Electronically signed by: Huang Gipson MD 04/01/2018 11:43 AM EDT
--- NOTE | 2018-04-01 14:05 | NM ---
EXAM DATE: 04/01/2018 1:47 PM EDT AGE/SEX: 52 years / Female INDICATIONS: Abdominal pain, nausea and vomiting for 2 days. CLINICAL DATA: This is the patient's initial encounter. Patient reports that signs and symptoms have been present for 2 days and indicates a pain score of 3/10. MEDICAL/SURGICAL HISTORY: . Alcohol abuse. . Ankle surgery. COMPARISON: No prior exams available for comparison. DOSE: 4.2 mCi Tc-99m mebrofenin i.v. Medication: 1.6 mcg Cholecystokinin IV Cholecystokinin was administered by slow infusion over 8 minutes beginning at 115 Minutes . minutes. TECHNIQUE: Following the intravenous administration of radiotracer, dynamic sequential images were pe rformed with continuous acquisition. Time-activity curves were generated. FINDINGS: Hepatic Kinetics: There is prompt uptake of radiotracer in the liver. No focal defects are seen. Ther e is normal rate of washout from the hepatic parenchyma. Biliary Clearance: Activity is first seen in the extrahepatic biliary system at 10 minutes. There is normal excretion into the small bowel. Gallbladder: Activity is first seen in the gallbladder at 50 minutes. Post-CCK: After CCK administration, there is emptying of the gallbladder with a 50% ejection fraction . Common bile duct kinetics are normal and there is no evidence of biliary obstruction. Biliary-Enteric Reflux: There is mild bile reflux of tracer activity seen in the stomach at the end o f the procedure. CONCLUSION: 1. Unremarkable HIDA scan with a gallbladder ejection fraction of approximately 50%. 2. There is evidence of some bile reflux. Electronically signed by: Huang Gipson MD 04/01/2018 2:04 PM EDT
[2018-04-01] MEDS: Temazepam 15 MG Capsule PO PRN (22:03)
[2018-04-01] MEDS: Ketorolac Inj 30 MG/ML (IVP) Vial IV.PUSH PRN (22:07)
--- NOTE | 2018-04-02 01:12 | MB ---
cc: Deion Moeller MD DATE: 04/01/2018 CHIEF COMPLAINT: Abdominal pain, nausea, vomiting, rule out acute cholecystitis. HISTORY OF PRESENT ILLNESS: The patient is a 52-year-old female who came in on 03/31/2018 with complaints of a 3-day history of abdominal pain. She states the pain initially was 8/10, currently it is a 1/10, improved with pain medications, IV fluids and treatment. She states the initial pain was severe, worse with movement, better with lying still. She had multiple episodes of nausea, vomiting and decreased p.o. intake, as well. She came to the emergency department for further evaluation, with a WBC of 11.7 and normal LFTs. She has a CT scan showing a gallbladder stone with biliary distention. She does note having heavy consumption of alcohol for the past 30 years and is a daily drinker. She denies any jaundice or scleral icterus. PAST MEDICAL HISTORY: ETOH abuse. PAST SURGICAL HISTORY: Ankle joint. SOCIAL HISTORY: Positive smoking, positive ETOH daily. Denies IVDA, does have history of cocaine use. ALLERGIES: NO KNOWN DRUG ALLERGIES. MEDICATIONS: See EMR. FAMILY HISTORY: Denies diabetes or hypertension. REVIEW OF SYSTEMS: GENERAL: Denies fever or chills. HEENT: Denies eye pain, ear pain. NECK: Denies swelling or pain. LUNGS: Denies cough or wheeze. HEART: Denies palpitation or chest pain. ABDOMEN: Complains of nausea, vomiting, abdominal pain. GENITOURINARY: Denies dysuria or hematuria. ENDOCRINE: Denies polyuria or polydipsia. EXTREMITIES: Denies any arthralgias or myalgias. PHYSICAL EXAMINATION: GENERAL: No acute distress. VITAL SIGNS: Temperature 98, pulse 58, respirations 17, blood pressure 148/65, saturation 92%. HEENT: Pupils equal, round, reactive. NECK: Supple. Trachea midline. LUNGS: Clear to auscultation bilateral. HEART: S1, S2 regular. ABDOMEN: Soft, nondistended, nontender. SKIN: Warm and well perfused. NEUROLOGIC: GCS of 15, 5/5 motor in all extremities. NEUROLOGIC: Moving all extremities. PSYCHIATRIC: Appropriate mood, appropriate insight. LABORATORY AND DIAGNOSTIC DATA: WBC 11.7, hemoglobin 15, hematocrit 44, platelets 384, sodium 139, potassium 4, chloride 102, BUN is 24, creatinine 0.8, glucose 99. AST 18, ALT 13, total bilirubin 0.4. Ultrasound reviewed by myself: Single gallstone, no cholecystitis. CT reviewed by myself: Distended gallbladder, single gallstone, no thickening, no fluid. HIDA scan done: Ejection fraction 50%, some bile reflux. MRI done: Single gallstone, dilated gallbladder, common duct 9 mm. ASSESSMENT: The patient is a 52-year-old female who presented initially with nausea and vomiting and abdominal pain, history of heavy ETOH abuse, CT scan with gallstone. PLAN: After full clinical, radiologic and laboratory workup, the patient with the above main issues. At this point, my suspicion for acute cholecystitis is very low, as patient's pain has resolved, along with her nausea and vomiting, and she feels remarkably well. The patient also has a history of significant ETOH. I would recommend avoiding alcohol, avoiding fatty foods regardless, and continuing to monitor with abdominal exams. We will continue to follow. Thank you for the consultation. MD ANAHI Ferguson/CALLI , 12:00 AM , 01:11 AM
[2018-04-02] MEDS: Ketorolac Inj 30 MG/ML (IVP) Vial IV.PUSH PRN ×3 (04:32→23:51)
[2018-04-02 08:36] LABS: Baso % (Auto) 0.6 % (0.0-2.0); Eos # (Auto) 0.2 th/mm3 (0.0-0.4); Eos % (Auto) 2.4 % (0.0-4.0); Hematocrit 34.2 % (35.0-46.0); Hemoglobin 11.7 gm/dL (11.6-15.3); Lymph # (Auto) 2.8 th/mm3 (1.0-4.8); Lymph % (Auto) 34.2 % (9.0-44.0); Mean Corpuscular HGB Conc 34.3 % (32.0-36.0); Mean Corpuscular Hemoglobin 31.6 pg (27.0-34.0); Mean Platelet Volume 7.9 fL (7.0-11.0); Mono # (Auto) 0.6 th/mm3 (0.0-0.9); Neut # (Auto) 4.5 th/mm3 (1.8-7.7); Neut % (Auto) 55.8 % (16.0-70.0); Platelet Count 287 th/mm3 (150-450); Red Blood Count 3.72 mil/mm3 (4.00-5.30); Red Cell Distribution Width 12.6 % (11.6-17.2); White Blood Count 8.1 th/mm3 (4.0-11.0)
--- NOTE | 2018-04-02 08:59 | P.PNIM ---
Subjective Interval history: Patient is feeling much better today. Tolerating diet last night and currently eating a full breakfast. No further nausea. Epigastric abdominal discomfort is not completely 0, but only 1/10 in severity. She states that she plans to establish with a PCP and take better care of her health going forward. Physical Exam Vital signs: Vital Signs 04/01/18 16:00 04/01/18 20:00 04/02/18 00:00 Temperature 98.3 F 98.1 F 98.0 F Pulse Rate 61 72 67 Respiratory Rate 18 17 17 Blood Pressure 130/61 107/58 L 98/52 L Pulse Oximetry 97 98 98 04/02/18 02:00 Temperature Pulse Rate Respiratory Rate 16 Blood Pressure Pulse Oximetry Intake & Output 04/01/18 04/02/18 04/02/18 18:59 06:59 18:59 Weight 178 lb 9.191 oz Other: # Voids 3 3 Narrative: GENERAL: Well-developed well-nourished. In no acute distress. SKIN: Warm and dry. No lesions noted. HEENT: Normocephalic. Pupils equal and round. Mucous membranes pink and moist. CARDIOVASCULAR: Regular rate and rhythm. No murmur appreciated. RESPIRATORY: No accessory muscle use. Clear to auscultation. Breath sounds equal bilaterally. GASTROINTESTINAL: Abdomen soft, non-tender, nondistended. Bowel sounds x4. MUSCULOSKELETAL: No obvious deformities. No clubbing or cyanosis. No edema. NEUROLOGICAL: Awake and alert. No focal neurological deficits. Moves upper and lower extremities spontaneously. Normal speech. PSYCHIATRIC: Appropriate mood and affect; insight and judgment normal. Results - Labs CBC & Chem 7: 04/02/18 08:00 04/02/18 08:00 Laboratory Results - last 24 hr 04/02/18 08:00 WBC 8.1 RBC 3.72 L Hgb 11.7 D Hct 34.2 L MCV 92.0 MCH 31.6 MCHC 34.3 RDW 12.6 Plt Count 287 MPV 7.9 Neut % (Auto) 55.8 Lymph % (Auto) 34.2 [place] % (Auto) 7.0 Eos % (Auto) 2.4 Baso % (Auto) 0.6 Neut # (Auto) 4.5 Lymph # (Auto) 2.8 [place] # (Auto) 0.6 Eos # (Auto) 0.2 Baso # (Auto) 0.0 WBC Differential . Differential Comment Auto diff final - Imaging Impressions Bile Acid Absorption NM 04/01/18 00:00 CONCLUSION: 1. Unremarkable HIDA scan with a gallbladder ejection fraction of approximately 50%. 2. There is evidence of some bile reflux. Cholangiopancreatography MRI 04/01/18 00:00 CONCLUSION: 1. There is a gallstone in the gallbladder. The gallbladder is somewhat dilated. 2. There is some dilatation of the common bile duct measuring 9 mm with some mildly dilated biliary ducts. This suggests some degree of biliary tract obstruction. Recommend ERCP for further evaluation. Assessment and Plan - Plan Abdominal pain Impression: Sudden onset; PMH alcohol abuse. Gallbladder US with stone; not suggestive of cholecystitis. A/P CT with biliary/ gallbladder distension concerning for distal bile duct obstruction. ?stricture or small mass above ampulla. MRCP and HIDA scan with no common bile duct obstruction or stone. CMP and lipase unremarkable -GI consulted -Consulted general surgery and is considering inpatient versus outpatient ERCP/endoscopic ultrasound -General surgery has evaluated the patient recommended no surgical intervention at this time -Will keep NPO -Will give maintenance NS for IVF -Will give PRN Toradol if pain recurs History of alcohol and substance abuse No evidence of withdrawal. -WA protocol -Encouraged outpatient follow-up UA abnormal Impression: UA with large leuk esterase, 78 WBC. Possible UTI, although no definite urinary symptoms. -Culture pending -Continue Rocephin -Update 1700, UA negative, DC antibiotic DVT PPX -SCD Discharge Planning: Follow GI recommendations; d/w Dr. Morales, recommends monitoring overnight and if okay tomorrow, DC for outpatient follow-up, and if not doing well then ERCP on Wednesday.
[2018-04-02 09:08] LABS: Alanine Aminotransferase 19 U/L (10-53); Albumin 3.4 g/dL (3.4-5.0); Alkaline Phosphatase 73 U/L (45-117); Anion Gap 9 meq/L (5-15); Aspartate Aminotransferase 15 U/L (15-37); Blood Urea Nitrogen 25 mg/dL (7-18); Calcium 8.9 mg/dL (8.5-10.1); Chloride 105 meq/L (98-107); Glomerular Filtration Rate 89 mL/min (>89); Glucose,Random 108 mg/dL (74-106); Potassium 3.2 meq/L (3.5-5.1); Sodium 140 meq/L (136-145); Total Protein 6.8 g/dL (6.4-8.2)
--- NOTE | 2018-04-02 10:38 | ECG ---
Date Performed: 04/01/2018 Time Performed: 14:31:26 PTAGE: 52 years EKG: SINUS BRADYCARDIA BORDERLINE ECG NO PREVIOUS TRACING DOCTOR: Otis Nowak Interpretating Date/Time 04/02/2018 10:36:38
--- NOTE | 2018-04-02 11:26 | P.PNGS ---
Subjective Patient reports: pain is less (feels much better today, no N/V) Physical Exam Vital signs: Vital Signs 04/01/18 16:00 04/01/18 20:00 04/02/18 00:00 Temperature 98.3 F 98.1 F 98.0 F Pulse Rate 61 72 67 Respiratory Rate 18 17 17 Blood Pressure 130/61 107/58 L 98/52 L Pulse Oximetry 97 98 98 04/02/18 02:00 Temperature Pulse Rate Respiratory Rate 16 Blood Pressure Pulse Oximetry Intake & Output 04/01/18 04/02/18 04/02/18 18:59 06:59 18:59 Weight 81 kg Other: # Voids 3 3 - Routine Abdominal Exam Present: soft, normoactive bowel sounds Assessment and Plan - Assessment (1) Gallstones Code(s): K80.20 - Calculus of gallbladder without cholecystitis without obstruction Status: Acute - Plan symptoms resolved. no surgical intervention planned. can FU with dr salcedo in office prn. will sign off, please call with any concerns.
[2018-04-02] MEDS: Pantoprazole Inj 40 MG Vial IV.PUSH SCH ×2 (12:52→17:34)
--- NOTE | 2018-04-02 14:23 | P.PNGI ---
Subjective Interval history: Patient is resting in the bed still having some mild mid abdominal pain but feeling some better No nausea no vomiting States she has 2 meals down Encouraged to be up in chair today Current hemoglobin 11.7 no obvious bleeding Physical Exam Vital signs: Vital Signs 04/01/18 16:00 04/01/18 20:00 04/02/18 00:00 Temperature 98.3 F 98.1 F 98.0 F Pulse Rate 61 72 67 Respiratory Rate 18 17 17 Blood Pressure 130/61 107/58 L 98/52 L Pulse Oximetry 97 98 98 04/02/18 02:00 Temperature Pulse Rate Respiratory Rate 16 Blood Pressure Pulse Oximetry Intake & Output 04/01/18 04/02/18 04/02/18 18:59 06:59 18:59 Weight 81 kg Other: # Voids 3 3 - Constitutional no acute distress - Routine HEENT Exam Head: Present: normocephalic, atraumatic Eye: Present: EOMI ENT: Present: mucous membranes moist - Routine Neck Exam Present: supple - Routine Respiratory Exam Present: CTA bilaterally - Routine Cardiovascular Exam Present: RRR - Routine Abdominal Exam Present: normoactive bowel sounds (taut, ), tenderness (Mild upper abdominal discomfort) - Routine Skin Exam Present: intact - Routine Neurological Exam Present: alert, oriented X3 (Answering simple questions appropriately) - Detailed Neurological Exam: Coma Scale Verbal Response: Oriented Motor Response: Obey commands Results - Labs CBC & Chem 7: 04/02/18 08:00 04/02/18 08:00 Laboratory Results - last 24 hr 04/02/18 04/02/18 08:00 08:00 WBC 8.1 RBC 3.72 L Hgb 11.7 D Hct 34.2 L MCV 92.0 MCH 31.6 MCHC 34.3 RDW 12.6 Plt Count 287 MPV 7.9 Neut % (Auto) 55.8 Lymph % (Auto) 34.2 [place] % (Auto) 7.0 Eos % (Auto) 2.4 Baso % (Auto) 0.6 Neut # (Auto) 4.5 Lymph # (Auto) 2.8 [place] # (Auto) 0.6 Eos # (Auto) 0.2 Baso # (Auto) 0.0 WBC Differential . Differential Comment Auto diff final Sodium 140 Potassium 3.2 L D Chloride 105 Carbon Dioxide 26.0 Anion Gap 9 BUN 25 H Creatinine 0.69 Estimated GFR 89 Random Glucose 108 H Calcium 8.9 D Total Bilirubin 0.2 AST 15 ALT 19 Alkaline Phosphatase 73 Total Protein 6.8 D Albumin 3.4 D Microbiology 04/01/18 02:23 Clean Catch Urine Urine Culture - Final 50-100,000 cfu/mL mixed gram positive valent[place] (probable contaminants) Assessment and Plan (1) Abdominal pain Status: Acute Code(s): R10.9 - Unspecified abdominal pain (2) Common bile duct (CBD) obstruction Status: Acute Code(s): K83.1 - Obstruction of bile duct (3) Nausea & vomiting Status: Acute Code(s): R11.2 - Nausea with vomiting, unspecified - Plan Dyspepsia, onset approximately 10 days ago which was a pressure sensation in her chest. Never felt this before Melena stools history of 3 days before admission. none currently at this time Abdominal pain onset 3 days ago associated with nausea and vomiting. Patient denies any diarrhea or constipation , afebrile No family history of colon cancer or patient EGD or colonoscopy. Current labs show leukocytosis, possibly related to urinary tract infection with positive urine noted. Hemoglobin 15., lipase and LFTs normal Note ultrasound of the gallbladder showed no: Cystitis but did note gallstones Abdominal pelvic CT did show biliary and gallbladder distention There is a HIDA scan pending but did discuss with attending the need for MRCP to rule out biliary distention or partial obstruction. Patient is hungry and thirsty, May trial clear liquids after testing completed if no current nausea or vomiting 04/02/2018 patient's symptoms do show mild improvement with no active nausea and vomiting. Patient states she has 2 meals down and abdominal pain is resolving during exam patient did note some mild tenderness and discomfort mid upper abdominal area. Some of her abdominal pain could be related to biliary colic. appreciate general surgery input which stated low probability of cholecystitis. Recommendations given for alcohol abstinence, continue to monitor abdominal pain symptoms. No obvious bleeding current hemoglobin stable at 11.7. Discussion for ERCP Wednesday if patient's symptoms continue with abdominal pain or can be seen as an outpatient. Also discussed the possibility of EUS as an outpatient. Plan Diet as tolerated Consider EUS as outpatient and close follow-up with GI if patient does discharge Possible ERCP Wednesday if patient's abdominal pain and symptoms persist, will reevaluate symptoms in the a.m. Antiemetics Bowel regimen as needed Encouraged EtOH abstinence Further recommendations to follow, due to recent history of melena stools and dyspepsia patient may need EGD. Timing TBA Patient was seen per myself and Dr. Morales, this note was written on her behalf (1) Abdominal pain Qualifiers: Abdominal location: unspecified location Qualified Code(s): R10.9 - Unspecified abdominal pain (3) Nausea & vomiting Qualifiers: Vomiting type: unspecified Vomiting Intractability: non-intractable Qualified Code(s): R11.2 - Nausea with vomiting, unspecified
[2018-04-02] MEDS: Temazepam 15 MG Capsule PO PRN (23:50)
[2018-04-03] MEDS: Ketorolac Inj 30 MG/ML (IVP) Vial IV.PUSH PRN ×3 (06:30→18:46)
[2018-04-03] MEDS: Pantoprazole Inj 40 MG Vial IV.PUSH SCH (13:03)
--- NOTE | 2018-04-03 14:10 | P.PNGI ---
Subjective Interval history: Feeling better.No nausea, vomiting .Tolerated diet well. Discussed results of testing , pro and cons of ERCP, EUS.Would like to proceed with work-up inpatient.At this time no provider available for EUS, but we can arrange for ERCP in am . Agreeable for now, if she changes her mind will call Physical Exam Vital signs: Vital Signs 04/02/18 16:00 04/02/18 20:00 04/03/18 00:15 Temperature 97.9 F 97.7 F 97.8 F Pulse Rate 67 72 71 Respiratory Rate 16 16 17 Blood Pressure 115/59 L 117/56 L 136/60 Pulse Oximetry 98 98 99 04/03/18 01:02 Temperature Pulse Rate Respiratory Rate 16 Blood Pressure Pulse Oximetry Intake & Output 04/02/18 04/03/18 04/03/18 18:59 06:59 18:59 Intake Total 360 / 360 Output Total 3 / 3 Balance 357 / 357 Weight 81 kg Intake: Oral 360 / 360 Output: Urine 3 / 3 Other: Date of Last Bowel Movement 04/02/18 - Constitutional no acute distress - Routine HEENT Exam Head: Present: normocephalic ENT: Present: mucous membranes moist - Routine Cardiovascular Exam Present: RRR, S1, S2 - Routine Skin Exam Present: intact - Routine Neurological Exam Present: alert, oriented X3 - Routine Psychiatric Exam Present: normal affect Results - Labs CBC & Chem 7: 04/02/18 08:00 04/02/18 08:00 Microbiology 04/01/18 02:23 Clean Catch Urine Urine Culture - Final 50-100,000 cfu/mL mixed gram positive valent[place] (probable contaminants) Assessment and Plan (1) Abdominal pain Status: Acute Code(s): R10.9 - Unspecified abdominal pain (2) Common bile duct (CBD) obstruction Status: Acute Code(s): K83.1 - Obstruction of bile duct (3) Nausea & vomiting Status: Acute Code(s): R11.2 - Nausea with vomiting, unspecified (4) Gallstone Status: Acute Code(s): K80.20 - Calculus of gallbladder without cholecystitis without obstruction (5) Dilated bile duct Status: Acute Code(s): K83.8 - Other specified diseases of biliary tract - Attending Attestation Dilated CBD possible ampullary stenosis, small mass ?-no CBD stone based on current imaging Biliary colic-resolved Nausea, vomiting secondary the above -resolved Gallstone -no surgery planned for now Recommendations : ERCP /stent /sphincterotomy in am EUS op depending on ERCP results fu with surgery op avoid ETOH if decides to go home we can arrange for this work-up op Risk/benefits of this procedures discussed with patient (1) Abdominal pain Qualifiers: Abdominal location: unspecified location Qualified Code(s): R10.9 - Unspecified abdominal pain (3) Nausea & vomiting Qualifiers: Vomiting type: unspecified Vomiting Intractability: non-intractable Qualified Code(s): R11.2 - Nausea with vomiting, unspecified
--- NOTE | 2018-04-03 17:22 | P.PN ---
Subjective Interval history: Follow-up visit abdominal pain, alcohol and substance abuse, gallstones. Patient seen and examined today. Reports she is doing well. States that she is tolerating p.o. diet without nausea, vomiting. Denies pain and discomfort. Denies SOB/ dyspnea. Denies chest pain, palpitations, headaches, dizziness. Denies fevers, chills, n/v/d. Denies dysuria. Physical Exam Vital signs: Vital Signs 04/02/18 20:00 04/03/18 00:15 04/03/18 01:02 Temperature 97.7 F 97.8 F Pulse Rate 72 71 Respiratory Rate 16 17 16 Blood Pressure 117/56 L 136/60 Pulse Oximetry 98 99 Intake & Output 04/02/18 04/03/18 04/03/18 18:59 06:59 18:59 Intake Total 360 / 360 Output Total 3 / 3 Balance 357 / 357 Weight 81 kg Intake: Oral 360 / 360 Output: Urine 3 / 3 Other: Date of Last Bowel Movement 04/02/18 Narrative: GENERAL: Well-developed well-nourished. In no acute distress. SKIN: Warm and dry. No lesions noted. HEENT: Normocephalic. Pupils equal and round. CARDIOVASCULAR: Regular rate and rhythm. No murmur appreciated. RESPIRATORY: No accessory muscle use. Clear to auscultation. Breath sounds equal bilaterally. GASTROINTESTINAL: Abdomen soft, non-tender, nondistended. Bowel sounds x4. MUSCULOSKELETAL: No obvious deformities. NEUROLOGICAL: Awake and alert. No focal neurological deficits. Moves upper and lower extremities spontaneously. Normal speech. Results - Labs CBC & Chem 7: 04/02/18 08:00 04/02/18 08:00 Assessment and Plan - Assessment (1) Abdominal pain Code(s): R10.9 - Unspecified abdominal pain Status: Acute (2) Substance abuse Code(s): F19.10 - Other psychoactive substance abuse, uncomplicated Status: Chronic - Plan 52 yo F with PMH substance abuse, alcohol abuse who presents with abdominal pain. Abdominal pain Sudden onset; PMH alcohol abuse. -Gallbladder US with stone; not suggestive of cholecystitis. A/P CT with biliary/gallbladder distension concerning for distal bile duct obstruction. ? stricture or small mass above ampulla. -MRCP and HIDA scan with no common bile duct obstruction or stone. -CMP and lipase unremarkable -GI consulted plan for ERCP tomorrow,ERCP /stent /sphincterotomy in am, EUS op depending on ERCP results -General surgery has evaluated the patient recommended no surgical intervention at this time History of alcohol and substance abuse No evidence of withdrawal. -CIWA protocol -Encouraged outpatient follow-up UA abnormal - UA with large leuk esterase, 78 WBC. Possible UTI, although no definite urinary symptoms. -50-100,000 mixed gram-positive valent[place], possible contaminants. -DC antibiotic DVT PPX -SCD Code Status: Full Code Discussed Condition With: Patient, nursing, Dr. Turcios Discharge Planning: Plan to DC home when cleared by GI post ERCP tomorrow. (1) Abdominal pain Qualifiers: Abdominal location: unspecified location Qualified Code(s): R10.9 - Unspecified abdominal pain
[2018-04-03] MEDS: Temazepam 15 MG Capsule PO PRN (20:52)
[2018-04-04] MEDS ORDERED: Metoprolol Tartrate 25 MG Tablet PO SCH (00:45)
[2018-04-04] MEDS ORDERED: Chlorhexidine Gluconate 2% 1 Pack (2 Cloths) TOPICAL SCH (00:45)
[2018-04-04] MEDS: Ketorolac Inj 30 MG/ML (IVP) Vial IV.PUSH PRN ×3 (00:50→18:08)
[2018-04-04] MEDS ORDERED: Sodium Chlor 0.9% Inj 500 ML IV.SIG SCH (01:00)
--- NOTE | 2018-04-04 11:42 | P.PN ---
Subjective Interval history: Follow-up visit abdominal pain, alcohol and substance abuse, gallstones. Patient seen and examined today. Reports she is doing better. States that she is getting anxious about the procedure. States that she does not want to do the procedure if we could tell her that it is going to be okay. Discussed with patient that this has been discussed with her with Dr. Morales from prior visit and that this can be done in outpatient if she wanted to. Patient states that she knows she will not do it in the outpatient setting, agrees to stay and wait for procedure to be done. Continues to be n.p.o. for now. No acute issues overnight. Denies pain and discomfort. Denies SOB/ dyspnea. Denies chest pain , palpitations, headaches, dizziness. Denies fevers, chills, n/v/d. Denies dysuria. Physical Exam Vital signs: Vital Signs 04/03/18 12:00 04/03/18 20:30 04/04/18 00:25 Temperature 98 F 98.1 F 97.9 F Pulse Rate 69 72 66 Respiratory Rate 16 17 16 Blood Pressure 121/57 L 129/60 132/65 Pulse Oximetry 98 97 98 04/04/18 04:00 04/04/18 08:00 Temperature 98.0 F 97.4 F L Pulse Rate 69 58 L Respiratory Rate 16 18 Blood Pressure 135/66 124/63 Pulse Oximetry 99 99 Intake & Output 04/03/18 04/04/18 04/04/18 18:59 06:59 18:59 Intake Total 360 / 360 Balance 360 / 360 Weight 81 kg Intake: Oral 360 / 360 Other: # Voids 3 Date of Last Bowel Movement 04/02/18 # Bowel Movements 0 # Incontinent Bowel Movements 3 Weight On Admission 81 kg Narrative: GENERAL: Well-developed well-nourished. In no acute distress. SKIN: Warm and dry. No lesions noted. HEENT: Normocephalic. Pupils equal and round. CARDIOVASCULAR: Regular rate and rhythm. No murmur appreciated. RESPIRATORY: No accessory muscle use. Clear to auscultation. Breath sounds equal bilaterally. GASTROINTESTINAL: Abdomen soft, non-tender, nondistended. Bowel sounds x4. MUSCULOSKELETAL: No obvious deformities. NEUROLOGICAL: Awake and alert. No focal neurological deficits. Moves upper and lower extremities spontaneously. Normal speech. Results - Labs CBC & Chem 7: 04/02/18 08:00 04/02/18 08:00 Assessment and Plan - Assessment (1) Abdominal pain Code(s): R10.9 - Unspecified abdominal pain Status: Acute (2) Substance abuse Code(s): F19.10 - Other psychoactive substance abuse, uncomplicated Status: Chronic - Plan 52 yo F with PMH substance abuse, alcohol abuse who presents with abdominal pain. Abdominal pain Sudden onset; PMH alcohol abuse. -Gallbladder US with stone; not suggestive of cholecystitis. A/P CT with biliary/gallbladder distension concerning for distal bile duct obstruction. ? stricture or small mass above ampulla. -MRCP and HIDA scan with no common bile duct obstruction or stone. -CMP and lipase unremarkable -GI consulted plan for ERCP tomorrow,ERCP /stent /sphincterotomy in am, EUS op depending on ERCP results -General surgery has evaluated the patient recommended no surgical intervention at this time -Waiting for ERCP today. Discussed with patient plan to go home and be discharged today when ERCP goes well. Patient is very much agreeable to the plan. Follow up with GI and outpatient History of alcohol and substance abuse No evidence of withdrawal. -CIWA protocol -Encouraged outpatient follow-up UA abnormal - UA with large leuk esterase, 78 WBC. Possible UTI, although no definite urinary symptoms. -50-100,000 mixed gram-positive valentina, possible contaminants. -DC antibiotic DVT PPX -SCD Code Status: Full code Discussed Condition With: Patient, nursing Discharge Planning: Plan to DC home today post ERCP when cleared by GI (1) Abdominal pain Qualifiers: Abdominal location: unspecified location Qualified Code(s): R10.9 - Unspecified abdominal pain
[2018-04-04] MEDS: Pantoprazole Inj 40 MG Vial IV.PUSH SCH (12:36)
--- NOTE | 2018-04-04 15:54 | P.DS ---
Date of admission: 04/01/18 05:05 Primary care physician: No Primary Care Physician Attending physician on discharge: Mykel Turcios Anticipated date of discharge: 04/04/18 Brief History from admission: Mrs. Connelly is a 52 yo F with H substance abuse, alcohol abuse who presents with abdominal pain. Patient states that the abdominal pain started 2.5 days ago and was associated with nausea/vomiting. It started suddenly and she does not think it was associated with oral intake. Patient has not had BM for 3 days. No fevers or chills. She has not had prior abdominal surgery. Patient reports smoking 1/2 PPD. Patient reports sometimes drinking 10 beers a day; she also has been doing cocaine occasionally. She receives opiate agonist/ antagonist from pain clinic currently; no recent opiate abuse. Patient reports chest pain with activity 1.5 weeks ago but not since. Normal respirations. Patient occasionally has urinary frequency with alcohol intake but no dysuria. Interval history: Patient with HTN on admission but otherwise normal VS. CBC with mild leukocytosis, UA suggestive of UTI, CMP unremarkable. Gallbladder US showed stone; CT abdomen/pelvis suggestive of common duct pathology. Patient reports that her pain is now resolved after Toradol in ED DS: Diagnosis - Discharge Diagnosis (1) Abdominal pain Status: Acute (2) Substance abuse Status: Chronic DS: Medications - Discharge Medications Prescriptions: pantoprazole 40 mg PO DAILY #30 ea DS: Summary Hospital Course: Patient is a 52 yo F with PMH substance abuse, alcohol abuse who presents with abdominal pain. Abdominal pain sudden onset, primary medical history of alcohol abuse. Gallbladder ultrasound not suggestive of cholecystitis. A PCT with biliary/gallbladder distention concerning for distal bile duct obstruction. Questionable stricture or mass above the ampulla. MRCP and HIDA scan with no common bile duct obstruction or stone. Her CMP and lipase were unremarkable. Patient was seen by GI Dr. Morales to evaluated the patient. Recommends ERCP possible stenting depending on the ERCP results. Biliary stent placed successfully 10 f 7 CM. Duodenal ulcer noted with ERCP. Recommends PPI and repeat ERCP in 1 month. General surgery has also evaluated the patient with no recommendations for surgical intervention at this time. Patient has history of alcohol and substance abuse currently not having any withdrawals. Her UA was abnormal but microbiology results 50-100,000 mixed gram-positive valent[place], possible contaminants. Patient appears to be comfortable, clinically improved. Patient has met maximal benefits of hospitalization. Clinically stable for discharge. Patient is to follow-up with PCP 3-5 days. She also needs to follow -up with bezel cutter in the outpatient setting. - Time Spent with Patient Total time spent providing and/or coordinating discharge services: Less than 30 minutes Exam Vital signs: Vital Signs 04/03/18 20:30 04/04/18 00:25 04/04/18 04:00 Temperature 98.1 F 97.9 F 98.0 F Pulse Rate 72 66 69 Respiratory Rate 17 16 16 Blood Pressure 129/60 132/65 135/66 Pulse Oximetry 97 98 99 04/04/18 08:00 04/04/18 12:00 Temperature 97.4 F L 97.2 F L Pulse Rate 58 L 61 Respiratory Rate 18 18 Blood Pressure 124/63 134/68 Pulse Oximetry 99 99 Intake & Output 04/03/18 04/04/18 04/04/18 18:59 06:59 18:59 Intake Total 360 / 360 Balance 360 / 360 Weight 81 kg Intake: Oral 360 / 360 Other: # Voids 3 Date of Last Bowel Movement 04/02/18 # Bowel Movements 0 # Incontinent Bowel Movements 3 Weight On Admission 81 kg Narrative: GENERAL: Well-developed well-nourished. In no acute distress. SKIN: Warm and dry. No lesions noted. HEENT: Normocephalic. Pupils equal and round. CARDIOVASCULAR: Regular rate and rhythm. No murmur appreciated. RESPIRATORY: No accessory muscle use. Clear to auscultation. Breath sounds equal bilaterally. GASTROINTESTINAL: Abdomen soft, non-tender, nondistended. Bowel sounds x4. MUSCULOSKELETAL: No obvious deformities. NEUROLOGICAL: Awake and alert. No focal neurological deficits. Moves upper and lower extremities spontaneously. Normal speech. Results Procedures completed during hospitalization: MRCP, ERCP - Impressions ITS Impressions Bile Acid Absorption NM 04/01/18 00:00 CONCLUSION: 1. Unremarkable HIDA scan with a gallbladder ejection fraction of approximately 50%. 2. There is evidence of some bile reflux. Cholangiopancreatography MRI 04/01/18 00:00 CONCLUSION: 1. There is a gallstone in the gallbladder. The gallbladder is somewhat dilated. 2. There is some dilatation of the common bile duct measuring 9 mm with some mildly dilated biliary ducts. This suggests some degree of biliary tract obstruction. Recommend ERCP for further evaluation. Gallbladder Ultrasound 04/01/18 00:14 CONCLUSION: 1. Single mobile gallstone. No evidence of cholecystitis. 2. Mildly prominent caliber of the common bile duct for a patient this age, etiology uncertain but assuming bilirubin is normal, probably physiologic. No perceptible duct stone. Abdomen/Pelvis CT 04/01/18 02:40 CONCLUSION: 1. Solitary gallstone. No evidence of cholecystitis. 2. Biliary and gallbladder distention of concern for distal common bile duct obstruction. Stricture or small mass of the distal common bile duct just above the ampulla are in the differential. Gastroenterology referral and ERCP recommended. Discharge Plan - Discharge Disposition Patient Disposition: 01 Discharge Home - Discharge Condition Condition: Stable - Discharge Order Discharge Orders: Discharge Order (Routine); Ordered 04/04/18 Ordered By: Ling Cornejo - Discharge Details Discharge Comment: DC home when cleared by GI, tolerating PO - Physicians Team Primary Care Provider: Primary Care Physici,No Attending Provider: Mykel Turcios Other Providers: Ara Morales MD ; Surgeons,[facility]
--- NOTE | 2018-04-04 16:47 | GIPROC ---
[facility] [address] [facility] [place] [address] ERCP PROCEDURE REPORT EXAM DATE: 04/04/2018 PATIENT NAME: Maday Connelly MR #: [id number] BIRTHDATE: 1965 ATTENDING: Álvaro Reza MD ORDER #: [id number] [facility]DC[facility] ATTENDANT: Atilio Ruiz and Lesley Canales STATUS: inpatient INDICATIONS: The patient is a 52 yr old female here for an ERCP due to abnormal abdominal CT and abnormal liver function test PROCEDURE PERFORMED: ERCP with stent placement MEDICATIONS: None and Per Anesthesia. CONSENT: The patient understands the risks and benefits of the procedure and understands that these risks include, but are not limited to: sedation, allergic reaction, infection, perforation and/or bleeding. Alternative means of evaluation and treatment include, among others: physical exam, x-rays, and/or surgical intervention. The patient elects to proceed with this endoscopic procedure. medical equipment was checked for proper function. Hand hygiene and appropriate measures for infection prevention was taken. After the risks, benefits and alternatives of the procedure were thoroughly explained, Informed was verified, confirmed and timeout was successfully executed by the treatment team. With the patient in left semi-prone position, medications were administered intravenously.The Pentax [id number] was passed from the mouth into the esophagus and further advanced from the esophagus into the stomach. From stomach scope was directed to the second portion of the duodenum. Major papilla was aligned with the duodenoscope. The scope position was confirmed fluoroscopically. Rest of the findings/therapeutics are given below. The scope was then completely withdrawn from the patient and the procedure completed. The pulse, BP, and O2 saturation were monitored and documented by the physician and the nursing staff throughout the entire procedure. The patient was cared for as planned according to standard protocol. The patient was then discharged to recovery in stable condition and with appropriate post procedure care. The ampulla was located the second portion of the duodenum. The ampulla appeared distorted. There was a dilation of the CBD, common hepatic duct, and intraheptic ducts. Under endoscopic and fluoroscopic guidance, a 10Fr x 7cm plastic stent was placed in the bile duct. ADVERSE EVENT: There were no complications. IMPRESSIONS: Ampulla appeared distorted and adjasent to large ulcer, blood oozing from the area. 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 Ampullary stenosis noted. Biliary stent placed successfully 10 f 7 CM RECOMMENDATIONS: Liver enzymes Further imaging to role out malignancy. Check CA 19-9 PPI ERCP within 1 month for stent removal and possible biopsies REPEAT EXAM: Return within 1 month for ERCP Álvaro Reza MD eSigned: Álvaro Reza MD 04/04/2018 4:47 PM cc: PATIENT NAME: Maday Connelly MR#: [id number]
--- NOTE | 2018-04-04 17:15 | FL ---
EXAM DATE: 04/04/2018 5:02 PM EDT AGE/SEX: 52 years / Female INDICATIONS: ampullary stenosis. Stent placement. CLINICAL DATA: This is the patient's initial encounter. Patient reports that signs and symptoms have been present for 1 day and indicates a pain score of Nonresponsive. MEDICAL/SURGICAL HISTORY: . Substance abuse. . . Right ankle surgery. COMPARISON: No prior exams available for comparison. FINDINGS: An ERCP was performed by the ordering physician. The images demonstrate a normal common bile duct wi thout stones. CONCLUSION: ERCP as above Electronically signed by: Ariel Srivastava MD 04/04/2018 5:14 PM EDT
[2018-04-04] MEDS ORDERED: fentaNYL Citrate Inj 100 MCG/2 ML Ampul ONE (17:18)
[2018-04-04] MEDS ORDERED: Lidocaine PF 1% Inj 5 ML Syringe INFILTRATN ONE (20:59)
== END 2018-04-04 21:00 | disposition home or self-care (01) ==
LOC: NEPD 20:59 → N06 20:59 → NEDA 20:59 → N06 04-01 06:11
PROVIDERS: ADMIT Family Medicine; ATTEND Family Medicine
DX: R07.9 Chest pain, unspecified; F10.10 Alcohol abuse, uncomplicated; R94.5 Abnormal results of liver function studies; R10.11 Right upper quadrant pain; R19.5 Other fecal abnormalities; R82.99 Other abnormal findings in urine; F17.210 Nicotine dependence, cigarettes, uncomplicated; R11.2 Nausea with vomiting, unspecified; R35.0 Frequency of micturition; K83.1 Obstruction of bile duct; K26.4 Chronic or unspecified duodenal ulcer with hemorrhage; F11.10 Opioid abuse, uncomplicated; I10 Essential (primary) hypertension; R93.8 Abnormal findings on diagnostic imaging of other specified body structures; D72.829 Elevated white blood cell count, unspecified

== ENCOUNTER 2018-05-10 13:26 | Inpatient (IN) ==
[2018-05-10 14:46] LABS: Baso # (Auto) 0.2 th/mm3 (0.0-0.2); Baso % (Auto) 1.5 % (0.0-2.0); Eos # (Auto) 0.2 th/mm3 (0.0-0.4); Eos % (Auto) 1.2 % (0.0-4.0); Hematocrit 38.6 % (35.0-46.0); Hemoglobin 13.1 gm/dL (11.6-15.3); Lymph # (Auto) 1.5 th/mm3 (1.0-4.8); Lymph % (Auto) 11.7 % (9.0-44.0); Mean Corpuscular Hemoglobin 30.4 pg (27.0-34.0); Mean Corpuscular Volume 89.3 fL (80.0-100.0); Mean Platelet Volume 8.8 fL (7.0-11.0); Mono # (Auto) 0.8 th/mm3 (0.0-0.9); Mono % (Auto) 6.4 % (0.0-8.0); Neut # (Auto) 10.2 th/mm3 (1.8-7.7); Neut % (Auto) 79.2 % (16.0-70.0); Platelet Count 351 th/mm3 (150-450); Red Blood Count 4.32 mil/mm3 (4.00-5.30); Red Cell Distribution Width 12.2 % (11.6-17.2); White Blood Count 12.9 th/mm3 (4.0-11.0)
[2018-05-10 15:07] LABS: Chloride 105 meq/L (98-107); Potassium 4.1 meq/L (3.5-5.1); Sodium 137 meq/L (136-145)
[2018-05-10 15:11] LABS: Albumin 3.7 g/dL (3.4-5.0); Anion Gap 8 meq/L (5-15); Calcium 9.3 mg/dL (8.5-10.1); Carbon Dioxide 23.8 meq/L (21.0-32.0); Glucose,Random 138 mg/dL (74-106); Lipase 115 U/L (73-393)
[2018-05-10 15:12] LABS: Blood Urea Nitrogen 13 mg/dL (7-18)
[2018-05-10 15:14] LABS: Alanine Aminotransferase 28 U/L (10-53); Aspartate Aminotransferase 16 U/L (15-37); Glomerular Filtration Rate 80 mL/min (>89)
[2018-05-10 15:17] LABS: Alkaline Phosphatase 87 U/L (45-117)
--- NOTE | 2018-05-10 15:21 | ED ---
HPI General Chief Complaint: Abdominal Pain Stated Complaint: abd pain Source: patient Mode of arrival: ambulatory Limitations: no limitations History of Present Illness MD complaint: abdominal pain Onset (ago): hour(s) (earlier today) Pain Consistency: intermittent Location: LUQ Severity: similar to previous episodes Severity scale (1-10): 9 Quality: cramping Radiation: none Migration to: no migration Relieving factors: nothing Exacerbating factors: nothing Context: other (stent in CBD on 04/04) Associated symptoms: denies other symptoms Related Data Home Medications Medication Instructions Recorded Confirmed buprenorphine-naloxone [Zubsolv] 5.7 mg SUBLINGUAL BID 03/31/18 05/10/18 Previous Rx's Medication Instructions Recorded pantoprazole 40 mg PO DAILY #30 ea 04/04/18 Allergies Allergy/AdvReac Type Severity Reaction Status Date / Time No Known Allergies Allergy Unverified 05/10/18 13:39 Review of Systems ROS: all other systems reviewed are negative FOR[facility]LY [facility] Medical History Medical History Substance abuse (Chronic) Common bile duct calculus (Acute) Surgical History Surgical History Status post surgical manipulation of ankle joint (Acute) Social History Social History Substance History: Past History Second Hand Smoke Exposure: Yes Smoking Status: Current some day smoker Tobacco Type: Cigarettes How Often Do You Have a Drink Containing Alcohol: Monthly or less Recent Travel in [facility] within the Last 8 Weeks: No Recent Out of Country Travel within the Last 8 Weeks: No Immunization History Tetanus Immunization: Never Vaccinated Hx Influenza Vaccine This Season: No Exam Const General: healthy appearing Nutritional Appearance: average body habitus Orientation: alert, awake and oriented x3 Other: odor of EtOH HENMT Head: normal to inspection, normocephalic and atraumatic Eyes General: appearance normal, both eyes and all related structures Sclera: sclerae normal Neck Neck: normal visual inspection and full ROM Chest Chest: normal inspection of the chest Resp Effort & Inspection: normal respiratory effort and able to speak in complete sentences Auscultation: clear to auscultation bilaterally Cardio Rate: regular rate Rhythm: regular rhythm Heart Sounds: S1 normal and S2 normal GI Inspection: normal to inspection Palpation: soft and tender in the epigastrum and in the LUQ Back/Spine/Pelvis Cervical Spine: cervical ROM normal Thoracic/Lumbar Spine: thoraco-lumbar ROM normal Skin General: no rashes or lesions noted, turgor normal and no jaundice Neuro General: alert, awake, oriented x3, moves all extremities and CN's II-XI intact bilaterally Extrem General: normal to inspection and full ROM Psych Appearance: grossly normal Mental Status: mental status grossly normal Speech and Movement: speech and movement normal Mood: anxious mood and labile mood Affect: anxious affect Attitude: cooperative Thought Process: normal Thought Content: normal Judgment: judgment good Course Consultations Consultation #1: Dr. Spencer will admit for further evaluation Time: 16:28 Initial Documented Vital Signs Temperature 98.4 F 05/10/18 13:34 Pulse Rate 101 H 05/10/18 13:34 Respiratory Rate 20 05/10/18 13:34 Blood Pressure 144/71 H 05/10/18 13:34 Pulse Oximetry 98 05/10/18 13:34 Last Documented Vital Signs Temperature 98.4 F 05/10/18 13:34 Pulse Rate 87 05/10/18 16:13 Respiratory Rate 16 05/10/18 16:13 Blood Pressure 157/85 H 05/10/18 16:13 Pulse Oximetry 100 05/10/18 16:13 Medical Decision Making MDM Narrative Medical decision making narrative: This patient presents with the chief complaint of upper abdominal pain. She states that she has had intermittent pain today. It is crampy in nature. When it comes, it is severe. She is concerned that she has recurrence of a common bile duct stone. Laboratory and radiographic studies have been reviewed. I have ordered IV morphine, IV Ativan and ODT Zofran for her symptoms. I am also giving her an initial dose of Zosyn. I will consult the hospitalist for admission to the hospital for further evaluation of her gallbladder. She will probably need both surgical and GI consultations. Medical Screen Exam Complete: Yes Emergency Medical Condition: Yes Differential Diagnosis Differential Diagnosis: Differential diagnosis of abdominal pain includes but is not limited to gastritis, pancreatitis, hepatitis, gastroenteritis, constipation, urinary retention, peptic ulcer disease, diverticulitis or appendicitis Medical Records Medical records reviewed: Yes I reviewed the patient's medical records. h/o EtOH and substance abuse. Recent CBD stone s/p stent on 04/04 Lab Data Lab results reviewed: Yes I reviewed the patient's lab results. Result diagrams: 05/10/18 14:26 05/10/18 14:18 Lab Results 05/10/18 05/10/18 05/10/18 Range/Units 14:18 14:26 15:43 CBC w Diff Auto diff final WBC 12.9 H (4.0-11.0) th/mm3 RBC 4.32 (4.00-5.30) mil/mm3 Hgb 13.1 (11.6-15.3) gm/dL Hct 38.6 (35.0-46.0) % MCV 89.3 (80.0-100.0) fL MCH 30.4 (27.0-34.0) pg MCHC 34.0 (32.0-36.0) % RDW 12.2 (11.6-17.2) % Plt Count 351 (150-450) th/mm3 MPV 8.8 (7.0-11.0) fL Neut % (Auto) 79.2 H (16.0-70.0) % Lymph % (Auto) 11.7 (9.0-44.0) % [place] % (Auto) 6.4 (0.0-8.0) % Eos % (Auto) 1.2 (0.0-4.0) % Baso % (Auto) 1.5 (0.0-2.0) % Neut # (Auto) 10.2 H (1.8-7.7) th/mm3 Lymph # (Auto) 1.5 (1.0-4.8) th/mm3 [place] # (Auto) 0.8 (0.0-0.9) th/mm3 Eos # (Auto) 0.2 (0.0-0.4) th/mm3 Baso # (Auto) 0.2 (0.0-0.2) th/mm3 WBC Differential . Differential Comment . Sodium 137 (136-145) meq/L Potassium 4.1 (3.5-5.1) meq/L Chloride 105 (98-107) meq/L Carbon Dioxide 23.8 (21.0-32.0) meq/L Anion Gap 8 (5-15) meq/L BUN 13 (7-18) mg/dL Creatinine 0.76 (0.50-1.00) mg/dL Estimated GFR 80 L (>89) mL/min Random Glucose 138 H (74-106) mg/dL Calcium 9.3 (8.5-10.1) mg/dL Total Bilirubin 0.5 (0.2-1.0) mg/dL AST 16 (15-37) U/L ALT 28 (10-53) U/L Alkaline Phosphatase 87 (45-117) U/L Total Protein 8.0 (6.4-8.2) g/dL Albumin 3.7 (3.4-5.0) g/dL Lipase 115 (73-393) U/L Urine Color Yellow (Yellw/Straw) Urine Clarity Clear (Clear) Urine pH 5.0 (5.0-8.5) Ur Specific [place] Less/equal 1.005 (1.002-1.035) Urine Protein Negative (Neg-Trace) mg/dL Urine Glucose (UA) Negative (Negative) mg/dL Urine Ketones Negative (Negative) mg/dL Urine Occult Blood Trace (Negative) Urine Nitrate Negative (Negative) Urine Bilirubin Negative (Negative) Urine Urobilinogen 0.2 (Less than 2) mg/dL Ur Leukocyte Esterase Small H (Negative) Urine RBC 4-15 H (0-3) /hpf Urine WBC 6-8 H (0-5) /hpf Ur Squamous Epith Cells 0-5 (0-5) /hpf Urine Bacteria Few H (None) /hpf Urine Trichomonas Moderate H (None) /hpf Micro UA Comment Culture not ind Urine Culture Comments Culture not ind Serum Alcohol Less than 3 (0-5) mg/dL Imaging Data Radiologist's impression: Abdomen/Pelvis CT 05/10/18 14:26 CONCLUSION: 1. Interval placement of a biliary stent which appropriately bridges the CBD and the duodenum. Biliary tree is decompressed without intra or extrahepatic biliary ductal dilatation. 2. However, the gallbladder remains distended with some mural thickening or pericholecystic fluid. Findings could represent gallbladder or cystic duct obstruction in the appropriate clinical setting. 3. Diverticular disease of the descending colon without diverticulitis. ECG Data EKG Prior to Arrival: No Attestation: I personally reviewed and interpreted this ECG as follows: (EKG shows a sinus rhythm with a rate of 82. No STT wave changes.) Discharge Plan Discharge Disposition Patient Disposition: 30 Still Patient Discharge Details Diagnosis: Abdominal pain, Substance abuse, Nausea & vomiting, Acute cholecystitis Physicians Team ED Provider: Alma Caraballo Primary Care Provider: Primary Care Candy Hay Rxs /Orders / Referrals /Forms Prescriptions: No Action buprenorphine-naloxone [Zubsolv] 5.7-1.4 mg Tablet, Sublingual 5.7 mg SUBLINGUAL BID RF: 0 pantoprazole [address] For Susp In Packet 40 mg PO DAILY Qty: 30 RF: 0 Status ED Status: Pending Admission
--- NOTE | 2018-05-10 15:30 | CT ---
EXAM DATE: 05/10/2018 3:21 PM EDT AGE/SEX: 53 years / Female INDICATIONS: Left upper abdominal pain radiating to the right side. Recent gallbladder stent placeme nt. CLINICAL DATA: This is the patient's initial encounter. Patient reports that signs and symptoms have been present for 1 day and indicates a pain score of 5/10. MEDICAL/SURGICAL HISTORY: None. . Gallbladder stent placement (04/04/18). ORAL CONTRAST: No oral contrast ingested. RADIATION DOSE: 6.97 CTDI (mGy) COMPARISON: [facility] [place], MRCP W/O CONTRAST, 04/01/2018. . TECHNIQUE: Multiple contiguous axial images were obtained through the abdomen and pelvis following b olus infusion of 95 ml Omnipaque 350 (iohexol) nonionic water-soluble contrast as a single exam dos e. No oral contrast ingested. Using automated exposure control and adjustment of the mA and/or kV ac cording to patient size, radiation dose was kept as low as reasonably achievable to obtain optimal di agnostic quality images. DICOM format image data is available electronically for review and comparis on. FINDINGS: Lower Lungs: The visualized lower lungs are clear. Liver: There is been interval placement of a biliary stent which appears to be appropriately position . There is no intra or extrahepatic biliary duct dilatation however, the gallbladder remains distende d with possibly some mural thickening or pericholecystic fluid. Small dots of air in the nondependent portion of the left biliary tree. Spleen: Homogeneous density without enlargement. Pancreas: Unremarkable without mass or calcification. Kidneys: Normal in size and shape. No evidence of mass or hydronephrosis. Adrenal Glands: Unremarkable. Aorta: The aorta and proximal iliac vessels are grossly unremarkable without aneurysmal dilation. Bowel/Mesentery: Diverticular disease of the descending colon without diverticulitis Abdominal Wall: Intact. Retroperitoneum: No evidence of adenopathy in the retrocrural, para-aortic, or deep pelvic regions. Bladder: Contours are smooth. Reproductive Organs: No abnormal masses or calcifications seen. Inguinal: The inguinal region is unremarkable without evidence of adenopathy. Bony Structures: Unremarkable. Post Contrast: No abnormal areas of enhancement seen. CONCLUSION: 1. Interval placement of a biliary stent which appropriately bridges the CBD and the duodenum. Bilia ry tree is decompressed without intra or extrahepatic biliary ductal dilatation. 2. However, the gallbladder remains distended with some mural thickening or pericholecystic fluid. F indings could represent gallbladder or cystic duct obstruction in the appropriate clinical setting. 3. Diverticular disease of the descending colon without diverticulitis. Electronically signed by: Florentino Smith MD 05/10/2018 3:29 PM EDT
[2018-05-10] MEDS ORDERED: Morphine Inj 4 MG/ML Vial IV.PUSH ONE (15:58)
[2018-05-10] MEDS ORDERED: Piperacil/Tazo 3.375 GM Premix 50 ML IV.SIG ONE (15:58)
[2018-05-10 16:07] LABS: Bilirubin,Urine Negative (Negative); Clarity,Urine Clear (Clear); Color,Urine Yellow (Yellw/Straw); Glucose,Urine (UA) Negative (Negative); Leukocyte Esterase,Urine Small (Negative); Nitrite,Urine Negative (Negative); Specific Gravity,Urine Less/Equal 1.005 (1.002-1.035); Urobilinogen,Urine 0.2 mg/dL (Less than 2)
[2018-05-10 16:10] LABS: Bacteria,Urine Few /hpf; Squamous Epithelial Cell,Urine 0-5 /hpf (0-5); Trichomonas,Urine Moderate /hpf
[2018-05-10] MEDS ORDERED: metroNIDAZOLE 500 MG Tablet PO ONE (16:25)
[2018-05-10] MEDS: Sod Chloride 0.9% Inj 1,000 ML IV.CONT SCH (17:30)
[2018-05-10] MEDS ORDERED: Bisacodyl 10 MG Supp RECTAL PRN (17:33)
[2018-05-10] MEDS ORDERED: Acetaminophen 325 MG Tablet PO PRN ×2 (17:33→17:35)
[2018-05-10] MEDS ORDERED: Temazepam 15 MG Capsule PO PRN (17:35)
--- NOTE | 2018-05-10 17:39 | P.HP ---
History of Present Illness Primary Care Physician: No Primary Care Physician Chief Complaint: Recurrent abdominal pain History of Present Illness: 53-year-old female with known history of substance abuse, alcohol abuse, recent hospitalization with biliary stent placement, medical noncompliance who presented the hospital because of abdominal pain. Patient indicates that she was just here about a month ago and underwent full evaluation and workup to include insertion of a biliary stent. Patient states that when she had discharged she has been experiencing intermittent abdominal pain. Patient states that approximate 2 weeks ago she ate a hamburger and a severe abdominal pain and was brought to the emergency department and was discharged back home. This time the patient states that she is awake this morning approximate 5:55 AM and she had some fruit and got significant abdominal pain where she described as a fullness sensation in her upper abdomen pushing up on her lungs. Discomfort would not go away so she came to the emergency department for evaluation. Patient had workup done with laboratory studies which appear to be unremarkable. CT scan does indicate gallbladder distention with mural thickening or pericholecystic fluid. Findings could represent gallbladder or cystic duct obstruction in appropriate setting. Because of that reason the ER physician recommended the patient be admitted to the hospital with possible GI or surgical consultation. After speaking with the patient she is sitting in the bed appears to be quite comfortable. I discussed with her if she was able to follow-up with the GI physician who placed a biliary stent. However she states that due to lack of money she has been unable to go for follow-up. She states that it was not related to insurance because she does have insurance. Records do indicate that the patient was supposed to have follow-up with the GI physician and then in 1 month the stent was to be removed which would have been 05/04/18. However she has not followed up with the GI physician for evaluation. - Diagnosis (1) Sepsis (2) Abdominal pain Inpatient Certification: I certify that the inpatient services were ordered in accordance with Medicare regulations governing the order. This includes certification that hospital inpatient services are reasonable and necessary and in the case of services not specified as inpatient-only under 42 CFR 419.22(n), that they are appropriately provided as inpatient services in accordance to with the 2-midnight benchmark under 43 CFR 412.3(e) Review of Systems All other systems reviewed negative except as stated in HPI Gastrointestinal: Reports abdominal pain PMFSH - History History Provided By: Patient - Medical History Medical History: Medical History (Last Updated 05/10/18 @ 17:26 by BOBBI Bullock) Substance abuse (Chronic) Alcohol abuse Common bile duct calculus Tobacco abuse - Surgical History Surgical History: Surgical History (Last Updated 05/10/18 @ 17:26 by BOBBI Bullock) History of biliary duct stent placement Status post surgical manipulation of ankle joint - Family History Family History: Family History (Last Updated 05/10/18 @ 17:27 by BOBBI Bullock) Other Family history unknown - Tobacco History Second Hand Smoke Exposure: Yes Tobacco Use In Past 30 Days: Yes Smoking Status: Current some day smoker Tobacco Type: Cigarettes - Alcohol History How Often Do You Have a Drink Containing Alcohol: Monthly or less - Substance Use History Substance History: Past History - Travel History Recent Travel in the [place] Within the Last 8 Weeks: No Recent Travel Out of the Country Within the Last 8 Weeks: No - Immunization History Tetanus Immunization: Never Vaccinated Hx Influenza Vaccine This Season: No Medications and Allergies Active Medications: Active Medications Sodium Chloride (Ns Flush) 2 ml IV.FLUSH PRN PRN PRN Reason: FLUSH AFTER USING IV ACCESS Allergies Allergy/AdvReac Type Severity Reaction Status Date / Time No Known Allergies Allergy Unverified 05/10/18 13:39 Home Medications Medication Instructions Recorded Confirmed Type buprenorphine-naloxone [Zubsolv] 5.7 mg SUBLINGUAL BID 03/31/18 05/10/18 History Exam Vital signs: Vital Signs 05/10/18 13:34 05/10/18 14:18 05/10/18 16:13 Temperature 98.4 F Pulse Rate 101 H 87 87 Respiratory Rate 20 16 16 Blood Pressure 144/71 H 150/63 H 157/85 H Pulse Oximetry 98 100 100 05/10/18 17:11 Temperature 97.9 F Pulse Rate 92 H Respiratory Rate 20 Blood Pressure 145/65 H Pulse Oximetry 99 Intake & Output 05/09/18 05/10/18 05/10/18 18:59 06:59 18:59 Intake Total 50 / 50 Balance 50 / 50 Weight 63.5 kg Intake: IV 50 / 50 Zosyn 3.375 GM Premix 50 ML @ 50 / 50 100 mls/hr IV.SIG ONCE ONE Rx#: [id number] Other: Weight On Admission 63.5 kg Narrative: GENERAL: Well-developed, well-nourished, in no acute distress. alert and orientated HEENT: Head is normocephalic without any lesions or masses noted. Facial features are symmetric. Eyes: Pupils equal round reactive to light. Extraocular muscles are intact. Conjunctivae were clear. Oropharyngeal: Pharynx without any erythema edema. Tongue is midline without deviation. Buccal mucosa is moist without any masses or lesions NECK: Supple without any masses. Trachea midline no deviation. No JVD, no bruits are appreciated CARDIAC: Regular rhythm, regular rate. S1/S2 are heard. No murmurs gallops or rubs. LUNGS: Clear to auscultation bilaterally. No wheeze, rhonchi or rales. No use of accessory muscles on inspiration or expiration. ABDOMEN: Soft, mild tenderness noted in the epigastric region. Nondistended. Bowel sounds heard in all 4 quadrants. No organomegaly or masses. Negative rebound, negative guarding EXTREMITIES: No edema, pulses are equal bilaterally. No cyanosis or clubbing NEUROLOGY: Mood and affect appear appropriate. Cranial nerves II through XII grossly intact. Muscle strength 5/5 in upper and lower extremities bilaterally. Deep tendon reflexes are 2+ in upper and lower extremities bilaterally. Results - Labs CBC & Chem 7: 05/10/18 14:26 05/10/18 14:18 Labs: Laboratory Results - last 24 hr 05/10/18 05/10/18 05/10/18 14:18 14:26 15:43 CBC w Diff Auto diff final WBC 12.9 H RBC 4.32 Hgb 13.1 Hct 38.6 MCV 89.3 MCH 30.4 MCHC 34.0 RDW 12.2 Plt Count 351 MPV 8.8 Neut % (Auto) 79.2 H Lymph % (Auto) 11.7 [place] % (Auto) 6.4 Eos % (Auto) 1.2 Baso % (Auto) 1.5 Neut # (Auto) 10.2 H Lymph # (Auto) 1.5 [place] # (Auto) 0.8 Eos # (Auto) 0.2 Baso # (Auto) 0.2 WBC Differential . Differential Comment . Sodium 137 Potassium 4.1 Chloride 105 Carbon Dioxide 23.8 Anion Gap 8 BUN 13 Creatinine 0.76 Estimated GFR 80 L Random Glucose 138 H Calcium 9.3 Total Bilirubin 0.5 AST 16 ALT 28 Alkaline Phosphatase 87 Total Protein 8.0 Albumin 3.7 Lipase 115 Urine Color Yellow Urine Clarity Clear Urine pH 5.0 Ur Specific [place] Less/equal 1.005 Urine Protein Negative Urine Glucose (UA) Negative Urine Ketones Negative Urine Occult Blood Trace Urine Nitrate Negative Urine Bilirubin Negative Urine Urobilinogen 0.2 Ur Leukocyte Esterase Small H Urine RBC 4-15 H Urine WBC 6-8 H Ur Squamous Epith Cells 0-5 Urine Bacteria Few H Urine Trichomonas Moderate H Micro UA Comment Culture not ind Urine Culture Comments Culture not ind Serum Alcohol Less than 3 - Imaging Impressions Abdomen/Pelvis CT 05/10/18 14:26 CONCLUSION: 1. Interval placement of a biliary stent which appropriately bridges the CBD and the duodenum. Biliary tree is decompressed without intra or extrahepatic biliary ductal dilatation. 2. However, the gallbladder remains distended with some mural thickening or pericholecystic fluid. Findings could represent gallbladder or cystic duct obstruction in the appropriate clinical setting. 3. Diverticular disease of the descending colon without diverticulitis. Caprini VTE Risk Assessment Caprini VTE Risk Assessment: Moderate/High Risk (score >= 2) Caprini Risk Assessment Model: Point Value = 1 Point Value = 2 Point Value = 3 Point Value = 5 Age 41-60 Minor surgery BMI > 25 kg/m2 Swollen legs Varicose veins or History of unexplained or recurrent spontaneous Oral contraceptives or hormone replacement Sepsis (< 1 month) Serious lung disease, including pneumonia (< 1 month) Abnormal pulmonary function Acute myocardial infarction Congestive heart failure (< 1 month) History of inflammatory bowel disease Medical patient at bed rest Age 61-74 Arthroscopic surgery Major open surgery (> 45 min) Laparoscopic surgery (> 45 min) Malignancy Confined to bed (> 72 hours) Immobilizing plaster cast Central venous access Age >= 75 History of VTE Family history of VTE Factor V Leiden Prothrombin [id number] Lupus anticoagulant Anticardiolipin antibodies Elevated serum homocysteine Heparin-induced thrombocytopenia Other congenital or acquired thrombophilia Stroke (< 1 month) Elective arthroplasty Hip, pelvis, or leg fracture Acute spinal cord injury (< 1 month) Prophylaxis Regimen: Total Risk Factor Score Risk Level Prophylaxis Regimen 0-1 Low Early ambulation 2 Moderate Order ONE of the following: *Sequential Compression Device (SCD) *Heparin 5000 units SQ BID 3-4 Higher Order ONE of the following medications: *Heparin 5000 units SQ TID *Enoxaparin/Lovenox 40 mg SQ daily (WT < 150 kg, CrCl > 30 mL/min) *Enoxaparin/Lovenox 30 mg SQ daily (WT < 150 kg, CrCl > 10-29 mL/min) *Enoxaparin/Lovenox 30 mg SQ BID (WT < 150 kg, CrCl > 30 mL/min) AND/OR *Sequential Compression Device (SCD) 5 or more Highest Order ONE of the following medications: *Heparin 5000 units SQ TID (Preferred with Epidurals) *Enoxaparin/Lovenox 40 mg SQ daily (WT < 150 kg, CrCl > 30 mL/min) *Enoxaparin/Lovenox 30 mg SQ daily (WT < 150 kg, CrCl > 10-29 mL/min) *Enoxaparin/Lovenox 30 mg SQ BID (WT < 150 kg, CrCl > 30 mL/min) AND *Sequential Compression Device (SCD) Assessment and Plan - Assessment (1) Sepsis Code(s): A41.9 - Sepsis, unspecified organism Status: Acute (2) Abdominal pain Code(s): R10.9 - Unspecified abdominal pain Status: Acute - Plan Sepsis -Patient meets criteria with leukocytosis, tachycardia, CT finding of possible gallbladder/distal cystic duct obstruction -Patient was given Zosyn and Flagyl in the emergency department, will continue Zosyn -Urinalysis does not indicate any signs of infection -Obtain blood cultures CT abnormality with gallbladder wall thickening, possible gallbladder/cystic duct obstruction -Patient does have history of biliary stent placement just over a month ago -Liver enzymes were unremarkable for any signs of obstruction -Consult revising clerk, discussed with Dr. Morales who recommended biliary scan, after reviewing her records it also indicates that the patient should have had the biliary stent removed approximately 5 days ago. Patient may require ERCP for stent removal Patient with a history of alcohol abuse -We will need to monitor for any withdrawal symptoms DVT prevention -Sequential compression devices, avoid chemical prophylaxis secondary to possible impending procedure. (2) Abdominal pain Qualifiers: Abdominal location: left upper quadrant Qualified Code(s): R10.12 - Left upper quadrant pain
[2018-05-10] MEDS ORDERED: Sod Chloride 0.9% Inj 1,000 ML IV.CONT SCH (17:45)
[2018-05-10 18:32] LABS: Prothrombin Time 10.6 sec (9.8-11.6)
--- NOTE | 2018-05-10 18:47 | ECG ---
Date Performed: 05/10/2018 Time Performed: 14:39:48 PTAGE: 53 years EKG: Sinus rhythm NORMAL ECG PREVIOUS TRACING : 04/01/2018 14.31 No significant change from previous tracing noted. DOCTOR: Otis Nowak Interpretating Date/Time 05/10/2018 18:46:32
[2018-05-10] MEDS: Pantoprazole Inj 40 MG Vial IV.PUSH SCH (20:03)
[2018-05-10] MEDS: Senna/Docusate Sodium 8.6/50 MG Tablet PO SCH (20:03)
[2018-05-10] MEDS: Piperacil/Tazo 3.375 GM Premix 50 ML IV.SIG SCH (22:11)
[2018-05-10] MEDS: Temazepam 15 MG Capsule PO PRN (22:23)
[2018-05-11] MEDS: Morphine Inj 4 MG/ML Vial IV.PUSH PRN ×4 (02:44→22:57)
[2018-05-11] MEDS: Sod Chloride 0.9% Inj 1,000 ML IV.CONT SCH ×2 (03:50→17:06)
[2018-05-11] MEDS: Piperacil/Tazo 3.375 GM Premix 50 ML IV.SIG SCH ×4 (03:51→22:57)
[2018-05-11 06:11] LABS: Baso # (Auto) 0.3 th/mm3 (0.0-0.2); Eos % (Auto) 0.1 % (0.0-4.0); Hematocrit 35.6 % (35.0-46.0); Hemoglobin 11.9 gm/dL (11.6-15.3); Lymph # (Auto) 0.7 th/mm3 (1.0-4.8); Lymph % (Auto) 4.5 % (9.0-44.0); Mean Corpuscular HGB Conc 33.4 % (32.0-36.0); Mean Corpuscular Hemoglobin 30.8 pg (27.0-34.0); Mean Platelet Volume 7.9 fL (7.0-11.0); Mono # (Auto) 0.9 th/mm3 (0.0-0.9); Mono % (Auto) 5.8 % (0.0-8.0); Neut # (Auto) 14.4 th/mm3 (1.8-7.7); Neut % (Auto) 87.6 % (16.0-70.0); Platelet Count 283 th/mm3 (150-450); Red Blood Count 3.87 mil/mm3 (4.00-5.30); Red Cell Distribution Width 11.9 % (11.6-17.2); White Blood Count 16.3 th/mm3 (4.0-11.0)
[2018-05-11 06:12] LABS: Chloride 105 meq/L (98-107); Potassium 3.7 meq/L (3.5-5.1); Sodium 138 meq/L (136-145)
[2018-05-11 06:30] LABS: Alanine Aminotransferase 24 U/L (10-53); Albumin 2.9 g/dL (3.4-5.0); Alkaline Phosphatase 65 U/L (45-117); Anion Gap 7 meq/L (5-15); Aspartate Aminotransferase 13 U/L (15-37); Blood Urea Nitrogen 7 mg/dL (7-18); Calcium 8.5 mg/dL (8.5-10.1); Carbon Dioxide 25.9 meq/L (21.0-32.0); Glomerular Filtration Rate 77 mL/min (>89); Glucose,Random 132 mg/dL (74-106); Total Protein 7.1 g/dL (6.4-8.2)
[2018-05-11] MEDS ORDERED: Ketorolac Inj 30 MG/ML (IVP) Vial IV.PUSH ONE (07:33)
--- NOTE | 2018-05-11 07:43 | P.PN ---
Subjective Interval history: 53-year-old female who is seen and examined today for follow-up on abdominal pain. Patient states that she started developing a new abdominal pain in the right upper quadrant. She did receive morphine last evening at 2: 45 AM. Discussed with her the possible etiologies. Need to wait for biliary scan to be performed to formulate a treatment plan. Vital signs remained stable , patient afebrile. Physical Exam Vital signs: Vital Signs 05/10/18 13:34 05/10/18 14:18 05/10/18 16:13 Temperature 98.4 F Pulse Rate 101 H 87 87 Respiratory Rate 20 16 16 Blood Pressure 144/71 H 150/63 H 157/85 H Pulse Oximetry 98 100 100 05/10/18 17:11 05/10/18 20:00 05/11/18 00:00 Temperature 97.9 F 98.6 F 99 F Pulse Rate 92 H 85 110 H Respiratory Rate 20 20 20 Blood Pressure 145/65 H 155/70 H 120/68 Pulse Oximetry 99 99 97 05/11/18 04:00 Temperature 98.1 F Pulse Rate 105 H Respiratory Rate 20 Blood Pressure 120/66 Pulse Oximetry 97 Intake & Output 05/10/18 05/11/18 05/11/18 18:59 06:59 18:59 Intake Total 50 / 50 1100 / 1100 Balance 50 / 50 1100 / 1100 Weight 63.5 kg 63.6 kg Intake: IV 50 / 50 1100 / 1100 NS Inj 1,000 ML @ 100 mls/hr IV 0 / 0 1000 / 1000 .CONT .Q10H ANTONIO Rx#:[id number] Zosyn 3.375 GM Premix 50 ML @ 50 / 50 100 / 100 100 mls/hr IV.SIG Q6H ANTONIO Rx#: [id number] Oral 0 / 0 Other: # Voids 4 Weight On Admission 63.5 kg Narrative: GENERAL: Well-developed, well-nourished, in no acute distress. alert and orientated HEENT: Head is normocephalic without any lesions or masses noted. Facial features are symmetric. Eyes: Extraocular muscles are intact. Conjunctivae were clear. NECK: Supple without any masses. Trachea midline no deviation. No JVD, CARDIAC: Regular rhythm, regular rate. S1/S2 are heard. No murmurs gallops or rubs. LUNGS: Clear to auscultation bilaterally. No wheeze, rhonchi or rales. No use of accessory muscles on inspiration or expiration. ABDOMEN: Soft, no point tenderness, patient is subjectively stating that she is in pain diffusely throughout her abdomen on palpation. Nondistended. Bowel sounds heard in all 4 quadrants. No organomegaly or masses. Negative rebound, negative guarding EXTREMITIES: No edema, pulses are equal bilaterally. No cyanosis or clubbing NEUROLOGY: Mood and affect appear appropriate. Cranial nerves II through XII grossly intact. Moving all extremities, speech is clear Results - Labs CBC & Chem 7: 05/11/18 05:50 05/11/18 05:50 Laboratory Results - last 24 hr 05/10/18 05/10/18 05/10/18 14:18 14:26 15:43 CBC w Diff Auto diff final WBC 12.9 H RBC 4.32 Hgb 13.1 Hct 38.6 MCV 89.3 MCH 30.4 MCHC 34.0 RDW 12.2 Plt Count 351 MPV 8.8 Neut % (Auto) 79.2 H Lymph % (Auto) 11.7 [place] % (Auto) 6.4 Eos % (Auto) 1.2 Baso % (Auto) 1.5 Neut # (Auto) 10.2 H Lymph # (Auto) 1.5 [place] # (Auto) 0.8 Eos # (Auto) 0.2 Baso # (Auto) 0.2 WBC Differential . Differential Comment . PT INR APTT Sodium 137 Potassium 4.1 Chloride 105 Carbon Dioxide 23.8 Anion Gap 8 BUN 13 Creatinine 0.76 Estimated GFR 80 L Random Glucose 138 H Calcium 9.3 Total Bilirubin 0.5 AST 16 ALT 28 Alkaline Phosphatase 87 Total Protein 8.0 Albumin 3.7 Lipase 115 Urine Color Yellow Urine Clarity Clear Urine pH 5.0 Ur Specific [place] Less/equal 1.005 Urine Protein Negative Urine Glucose (UA) Negative Urine Ketones Negative Urine Occult Blood Trace Urine Nitrate Negative Urine Bilirubin Negative Urine Urobilinogen 0.2 Ur Leukocyte Esterase Small H Urine RBC 4-15 H Urine WBC 6-8 H Ur Squamous Epith Cells 0-5 Urine Bacteria Few H Urine Trichomonas Moderate H Micro UA Comment Culture not ind Urine Culture Comments Culture not ind Serum Alcohol Less than 3 05/10/18 05/11/18 05/11/18 18:00 05:50 05:50 CBC w Diff Auto diff final WBC 16.3 H RBC 3.87 L Hgb 11.9 Hct 35.6 MCV 92.0 MCH 30.8 MCHC 33.4 RDW 11.9 Plt Count 283 MPV 7.9 Neut % (Auto) 87.6 H Lymph % (Auto) 4.5 L [place] % (Auto) 5.8 Eos % (Auto) 0.1 Baso % (Auto) 2.0 Neut # (Auto) 14.4 H Lymph # (Auto) 0.7 L [place] # (Auto) 0.9 Eos # (Auto) 0.0 Baso # (Auto) 0.3 H WBC Differential . Differential Comment . PT 10.6 INR 1.0 APTT 28.0 Sodium 138 Potassium 3.7 Chloride 105 Carbon Dioxide 25.9 Anion Gap 7 BUN 7 Creatinine 0.78 Estimated GFR 77 L Random Glucose 132 H Calcium 8.5 D Total Bilirubin 0.9 AST 13 L ALT 24 Alkaline Phosphatase 65 Total Protein 7.1 D Albumin 2.9 L D Lipase Urine Color Urine Clarity Urine pH Ur Specific [place] Urine Protein Urine Glucose (UA) Urine Ketones Urine Occult Blood Urine Nitrate Urine Bilirubin Urine Urobilinogen Ur Leukocyte Esterase Urine RBC Urine WBC Ur Squamous Epith Cells Urine Bacteria Urine Trichomonas Micro UA Comment Urine Culture Comments Serum Alcohol - Imaging Impressions Abdomen/Pelvis CT 05/10/18 14:26 CONCLUSION: 1. Interval placement of a biliary stent which appropriately bridges the CBD and the duodenum. Biliary tree is decompressed without intra or extrahepatic biliary ductal dilatation. 2. However, the gallbladder remains distended with some mural thickening or pericholecystic fluid. Findings could represent gallbladder or cystic duct obstruction in the appropriate clinical setting. 3. Diverticular disease of the descending colon without diverticulitis. Assessment and Plan - Assessment (1) Sepsis Code(s): A41.9 - Sepsis, unspecified organism Status: Acute (2) Abdominal pain Code(s): R10.9 - Unspecified abdominal pain Status: Acute - Plan Sepsis -Patient meets criteria with leukocytosis, tachycardia, CT finding of possible gallbladder/distal cystic duct obstruction -Patient was given Zosyn and Flagyl in the emergency department, -continue Zosyn -Urinalysis does not indicate any signs of infection -Blood cultures are pending CT abnormality with gallbladder wall thickening, possible gallbladder/cystic duct obstruction -Patient does have history of biliary stent placement just over a month ago -Liver enzymes were unremarkable for any signs of obstruction -Consulted wool washer feeder, discussed with Dr. Morales who recommended biliary scan, after reviewing her records it also indicates that the patient should have had the biliary stent removed approximately 5 days ago. Patient may require ERCP for stent removal -Awaiting hepatobiliary scan -Repeat CT scan was performed secondary to worsening of her pain, does indicate worsening of the gallbladder. Radiology recommending possible need for cholecystotomy tube -General surgery consultation -Continue pain control Patient with a history of alcohol abuse -We will need to monitor for any withdrawal symptoms DVT prevention -Sequential compression devices, avoid chemical prophylaxis secondary to possible impending procedure. Discussed Condition With: Patient, Dr. Morales (2) Abdominal pain Qualifiers: Abdominal location: left upper quadrant Qualified Code(s): R10.12 - Left upper quadrant pain
[2018-05-11] MEDS: Senna/Docusate Sodium 8.6/50 MG Tablet PO SCH ×2 (08:23→20:33)
--- NOTE | 2018-05-11 09:44 | CT ---
EXAM DATE: 05/11/2018 9:32 AM EDT AGE/SEX: 53 years / Female INDICATIONS: Increasing right upper quadrant pain. CLINICAL DATA: This is the patient's subsequent encounter. Patient reports that signs and symptoms h ave been present for 2 days and indicates a pain score of 6/10. MEDICAL/SURGICAL HISTORY: None. . Gallbladder stent placement (04/04/18). RADIATION DOSE: 6.26 CTDI (mGy) COMPARISON: [facility], CT ABDOMEN & PELVIS W CONTRAST, 05/10/2018. . TECHNIQUE: Multiple contiguous axial images were obtained through the abdomen. Images were obtained using multiple row detector helical technique. Using automated exposure control and adjustment of the mA and/or kV according to patient size, radiation dose was kept as low as reasonably achievable to o btain optimal diagnostic quality images. DICOM format image data is available electronically for rev iew and comparison. FINDINGS: Lower Lungs: Mild dependent atelectatic changes. No confluent infiltrate. Liver: As noted previously, a biliary stent appropriately bridges the CBD and duodenum with decompres michael of the intra and extrahepatic biliary tree. There is some expected, increasing biliary air in th e nondependent portion of the biliary system. Interval worsening in the appearance of the gallbladder . The lumen remains distended with a probable 1.2 cm rim calcified gallstone at the neck. Increasing pericholecystic inflammatory changes characteristic of worsening acute cholecystitis. Spleen: Homogeneous density without enlargement. Pancreas: Unremarkable without mass or calcification. Kidneys: Normal in size and shape. No evidence of mass or hydronephrosis. Adrenal Glands: Unremarkable. Aorta: The aorta and proximal iliac vessels are grossly unremarkable without aneurysmal dilation. Bowel/Mesentery: Diverticular disease in the descending colon without diverticulitis Abdominal Wall: Intact. Retroperitoneum: No evidence of adenopathy in the retrocrural, para-aortic, or deep pelvic regions. Bladder: Contours are smooth. Reproductive Organs: No abnormal masses or calcifications seen. Inguinal: The inguinal region is unremarkable without evidence of adenopathy. Bony Structures: Unremarkable. CONCLUSION: 1. Interval worsening in the appearance of the gallbladder. The lumen remains distended with mural t hickening and worsening pericholecystic fluid. Rim calcified 1.2 cm stone remains in the gallbladder neck. Spectrum of findings are characteristic of an acute cholecystitis. Patient would likely benefit from cholecystostomy tube placement. 2. Biliary stent remains stable in position and appropriately bridges the CBD and duodenum. Slight i ncrease in the expected nondependent biliary air. 3. Mild atelectatic changes in both lung bases. This may be due to limited inspiratory effort associ ated with the patient's abdominal pain. 4. Minimal diverticular disease of the descending colon without diverticulitis. Electronically signed by: Florentino Smith MD 05/11/2018 9:42 AM EDT
[2018-05-11] MEDS ORDERED: Lidocaine PF 1% Inj 5 ML Syringe INFILTRATN ONE (12:00)
[2018-05-11] MEDS ORDERED: Propofol Inj 500 MG/50 ML Vial ONE (12:15)
[2018-05-11] MEDS ORDERED: Chlorhexidine Gluconate 2% 1 Pack (2 Cloths) TOPICAL SCH (12:15)
[2018-05-11] MEDS ORDERED: Metoprolol Tartrate 25 MG Tablet PO SCH (12:15)
--- NOTE | 2018-05-11 12:48 | P.PCN ---
Procedure: THANK YOU FOR THE REFERRAL Indication; common bile duct stone, stent was placed on previous ERCP a month ago, patient came back with abdominal pain Procedure Performed; upper endoscopy with stent removal , ERCP with sphincterotomy, sweeping the duct with balloon and stone removal After informing the patient about procedure and possible complications consent was signed. history and physical were updated. Patient was taken to the procedure room and placed in position. Time out was completed. Adequate sedation was performed by anesthesia provider. Upper Endoscopy, the scope was placed in the mouth advanced under video guide to the second portion of the duodenum, there was a stent was identified in the duodenum and, then the scope was withdrawal to the stomach and retro-flexion was performed, the scope was withdrawal to the esophagus then out of the mouth without any immediate complication. ERCP: the scope was placed in the mouth advanced under video guide to the second portion of the duodenum, the ampulla was identified , cholangiogram was performed there was filling defect in the common bile duct, extension of the sphincterotomy was done, sweeping the duct with 15 mm balloon retrieved one stone and significant amount of sludge, end of case occluded cholangiogram did not reveal any filling defect with good flow of the contrast material from the ampulla , injections of the pancreatic duct was not performed performed, then the scope was withdrawal to the stomach and retro-flexion was performed, the scope was withdrawal to the esophagus then out of the mouth without any immediate complication. Findings; Esophagus: Normal Stomach normal Duodenum there was a stent in the duodenum which was removed by snare Ampula sphincterotomy was done CBD filling defect in the common bile duct pancreatic duct not examined therapy sweeping the duct with balloon to retrieve the stone Recommendations; N.p.o. until the morning Surgical consult Pain medication as needed
[2018-05-11] MEDS ORDERED: Sodium Chlor 0.9% Inj 500 ML IV.SIG SCH (13:00)
--- NOTE | 2018-05-11 13:29 | FL ---
EXAM DATE: 05/11/2018 1:18 PM EDT AGE/SEX: 53 years / Female INDICATIONS: ERCP. CLINICAL DATA: This is the patient's initial encounter. Patient reports that signs and symptoms have been present for 1 day and indicates a pain score of Nonresponsive. MEDICAL/SURGICAL HISTORY: None. . Gallbladder stent placement (04/04/18). COMPARISON: [facility] [place], GI LAB ERCP, 04/04/2018. . FINDINGS: An ERCP was performed by the ordering physician. The images demonstrate normal appearance of the int ra and extrahepatic biliary tree. No filling defect to suggest stone disease. CONCLUSION: Normal appearance of the intra and extrahepatic biliary tree without obvious stone disease. Electronically signed by: Florentino Smith MD 05/11/2018 1:28 PM EDT
--- NOTE | 2018-05-11 14:55 | MB ---
cc: Ara Morales MD DATE: 05/11/2018 REFERRING PHYSICIAN: Dr. Simeon REASON FOR CONSULTATION: Abdominal pain, abnormal CT. HISTORY OF PRESENT ILLNESS: Ms. Connelly is a 53-year-old lady with history of alcohol use, was admitted earlier this year for abdominal pain, elevated liver enzymes, found to have biliary tree dilatation. She underwent an ERCP with stent placement. She was also evaluated by surgery for possible cholecystectomy. The patient was supposed to follow up in the office and have a repeat ERCP with stent removal and brushing as the ampulla looks slightly abnormal. The patient called yesterday in the office complaining of severe abdominal pain. She was advised to either come to the office or go to the emergency room. Because the pain was so severe she went to the emergency room for further evaluation and treatment. In the emergency room, a CT abdomen and pelvis was done, which showed some dilatation of the gallbladder and pericholecystic fluid. According to the patient initially, her pain was in the left upper quadrant. Currently, it is in the right upper quadrant and the patient stated the pain got worse than yesterday. She does report some alcohol use. No fever, no chills. Since admission, she was started on antibiotics. HIDA scan was ordered. A surgical consultation was also recommended. PAST MEDICAL HISTORY: Substance abuse, alcohol abuse, common bile duct stone, tobacco use. PAST SURGICAL HISTORY: ERCP with stent placement, manipulation of the ankle joint. FAMILY HISTORY: No family history of colon cancer or any other GI pathology. SOCIAL HISTORY: She denies any drug use. Smokes, drinks alcohol. IV fluids, was placed on Zosyn, sublingual. ALLERGIES: NO KNOWN ALLERGIES. REVIEW OF SYSTEMS: GENERAL: She denies any fever, chills, weight loss or weight gain. ENT: No alteration of baseline hearing or visual acuity. PULMONARY: Denies any chest pain, shortness of breath. GASTROINTESTINAL: As above. GENITOURINARY: Denies dysuria or hematuria. HEMATOLOGICAL: No history of anemia or bleeding disorder. SKIN: No alteration of baseline skin lesion. NEUROLOGIC: No history of TIA or CVA kind of symptoms. PHYSICAL EXAMINATION: GENERAL: She is sitting in bed, very uncomfortable due to severe abdominal pain, mostly in the right upper quadrant. Her pulse rate 110. VITAL SIGNS: Blood pressure 120/68, saturation 98. HEENT: PERRLA. NECK: No JVD. No lymphadenopathy. CHEST: Clear to auscultation and palpation. CARDIOVASCULAR: S1, S2. No murmur. ABDOMEN: Very tender in the right upper quadrant. Mildly distended. Some rebound. CENTRAL NERVOUS SYSTEM: Awake, alert, oriented x3. No focal signs identified. DIAGNOSTIC DATA: Her CT abdomen and pelvis done in the emergency room yesterday showed a CBD stone some dilated gallbladder. Her liver enzymes were normal. CBC slight elevation of the white count today 16,000. IMPRESSION: Mrs. ConnellyMD is a very pleasant lady, recently admitted to the hospital with recurrent abdominal pain, found to have dilatation of the biliary tree and gallbladder, possible cholecystitis. History of dilatation of the common bile duct, abnormal ampulla status post stent placement, needs repeat ERCP with stent removal. RECOMMENDATIONS: STAT CT abdomen and pelvis due to severe abdominal pain, rule out any intra-abdominal process at this time. HIDA scan is ordered. General surgery consultation. The patient will be transferred to the main floor for ERCP with stent removal, possible sphincterotomy and brushing. The risks and benefits were discussed with the patient and she is agreeing with it. I would like to thank Dr. Simeon for referring her to our office for consultation. Further recommendations will depend on the patient's clinical status and the above results. MD RODGER AmayaB/ct/ll , 12:44 PM , 12:57 PM
--- NOTE | 2018-05-11 16:36 | P.CONGS ---
[facility] Gen Surgery Consult Note Consult date: 05/11/18 Reason for consult: other (cholecysitis) Requesting physician: Amy Strange Narrative: This is a 53 year old female with no significant past medical history who presented to the ED yesterday with complaints of severe abdominal pain. The patient is well known to the General Surgery service after admission about a month ago for abdominal pain. The patient did have an ERCP with stent placement during the admission by Dr. Read. A CT abdomen and pelvis is obtained yesterday which shows interval placement of a biliary drain and a distended gallbladder. There is a question of gallbladder or cystic duct obstruction. The patient does have an elevated white blood cell count. The patient was transferred to [facility] for stent removal. This was done this morning. The patient continues to have severe right upper quadrant abdominal pain without associated nausea or vomiting. A repeat CT abdomen pelvis was obtained which shows worsening of the gallbladder and worsening pericholecystic fluid. A General Surgery consultation has been requested for evaluation of laparoscopic cholecystectomy. <Gabriella Patel - Last Filed: 05/12/18 14:54> Review of Systems Constitutional: Denies chills, Denies fever(s) Eyes: Denies dry eyes Ears, Nose, Mouth, and Throat: Denies dizziness Cardiovascular: Denies chest pain, Denies chest pain at rest, Denies chest pain with activity Respiratory: Denies chest congestion, Denies cough Gastrointestinal: Reports abdominal pain, Denies nausea, Denies vomiting Genitourinary: Denies urinary urgency Musculoskeletal: Denies back pain Skin/Breast: Denies boil, Denies lesions Neurologic: Denies headache(s) Psychiatric: Denies anxiety, Denies confusion Endocrine: Denies cold intolerance Hematologic/Lymphatic: Denies easy bleeding Allergic/Immunologic: Denies GI upset with certain foods <Gabriella Patel - Last Filed: 05/12/18 14:54> PMFSH - History History Provided By: Patient - Medical History Medical History: Medical History (Last Reviewed 05/11/18 @ 16:47 by DON Caba) Substance abuse (Chronic) Alcohol abuse Common bile duct calculus Tobacco abuse - Surgical History Surgical History: Surgical History (Last Reviewed 05/11/18 @ 16:47 by DON Caba) History of biliary duct stent placement Status post surgical manipulation of ankle joint - Family History Family History: Family History (Last Updated 05/10/18 @ 17:27 by BOBBI Bullock) Other Family history unknown - Tobacco History Second Hand Smoke Exposure: Yes Tobacco Use In Past 30 Days: Yes Smoking Status: Current some day smoker Tobacco Type: Cigarettes - Alcohol History How Often Do You Have a Drink Containing Alcohol: Monthly or less - Substance Use History Substance History: Past History - Travel History Recent Travel in the [place] Within the Last 8 Weeks: No Recent Travel Out of the Country Within the Last 8 Weeks: No - Immunization History Tetanus Immunization: Never Vaccinated Hx Influenza Vaccine This Season: No <Gabriella Patel - Last Filed: 05/12/18 14:54> - Medical History Medical History: Medical History (Last Reviewed 05/11/18 @ 16:47 by DON Caba) Substance abuse (Chronic) Alcohol abuse Common bile duct calculus Tobacco abuse - Surgical History Surgical History: Surgical History (Last Reviewed 05/11/18 @ 16:47 by DON Caba) History of biliary duct stent placement Status post surgical manipulation of ankle joint - Family History Family History: Family History (Last Updated 05/10/18 @ 17:27 by BOBBI Bullock) Other Family history unknown <Deion Moeller - Last Filed: 05/14/18 16:19> Medications and Allergies Active Medications: Active Medications Acetaminophen (Tylenol) 650 mg PO Q4H PRN PRN Reason: Temp > 100.4 Al Hydroxide/Mg Hydroxide (Milk Of Magnjohan Liq) 30 ml PO Q12H PRN PRN Reason: Mild Constipation Bisacodyl (Dulcolax Supp) 10 mg RECTAL DAILY PRN PRN Reason: SEVERE CONSITIPATION Chlorhexidine Gluconate (Chlorhexidine 2% Cloth) 3 pack TOPICAL DECAL DEC[employer]ATOR [facility] Stop: 05/14/18 12:08 Sodium Chloride (Ns Inj) 1,000 mls @ 100 mls/hr IV.CONT .Q10H [facility] Last Admin: 05/11/18 03:50 Dose: 100 mls/hr Piperacillin/Tazobactam/Dextrose (Zosyn 3.375 Gm Premix) 50 mls @ 100 mls/hr IV.SIG Q6H [facility] Last Infusion: 05/11/18 10:21 Dose: Infused Lactated Ringer's (Lr 1000 Ml Inj) 1,000 mls @ 30 mls/hr IV.SIG .Q24H [facility] Stop: 05/14/18 12:08 Last Admin: 05/11/18 11:05 Dose: 30 mls/hr Sodium Chloride (Ns Inj) 500 mls @ 30 mls/hr IV.SIG .Q10H [facility] Stop: 05/14/18 12:08 Lactulose (Lactulose Liq) 30 ml PO DAILY PRN PRN Reason: SEVERE CONSITIPATION Lorazepam (Ativan Inj) 2 mg IV.PUSH Q2H PRN PRN Reason: SEIZURES Metoprolol Tartrate (Lopressor) 25 mg PO [employer] Stop: 05/14/18 12:08 Morphine Sulfate (Morphine Inj) 2 mg IV.PUSH Q4H PRN PRN Reason: pain 8 - 10 Last Admin: 05/11/18 16:00 Dose: 2 mg Ondansetron HCl (Zofran Inj) 4 mg IV.PUSH Q6H PRN PRN Reason: NAUSEA OR VOMITING Pantoprazole Sodium (Protonix Inj) 40 mg IV.PUSH Q24H [facility] Last Admin: 05/10/18 20:03 Dose: 40 mg Povidone Iodine (Betadine 5% Antisepsis Kit) 1 applicatio EACH NARE [employer] [facility] Stop: 05/14/18 12:08 Senna/Docusate Sodium (Idalia-Colace) 1 tab PO BID [facility] Last Admin: 05/11/18 08:23 Dose: 1 tab Sennosides (Senokot) 17.2 mg PO Q12H PRN PRN Reason: Moderate Constipation Sodium Chloride (Ns Flush) 2 ml IV.FLUSH PRN PRN PRN Reason: FLUSH AFTER USING IV ACCESS Last Admin: 05/11/18 07:50 Dose: 2 ml Temazepam (Restoril) 15 mg PO HS PRN PRN Reason: INSOMNIA Last Admin: 05/10/18 22:23 Dose: 15 mg <Gabriella Patel - Last Filed: 05/12/18 14:54> <Deion Moeller - Last Filed: 05/14/18 16:19> Allergies Allergy/AdvReac Type Severity Reaction Status Date / Time No Known Allergies Allergy Unverified 05/10/18 13:39 Home Medications Medication Instructions Recorded Confirmed Type buprenorphine-naloxone [Zubsolv] 5.7 mg SUBLINGUAL BID 03/31/18 05/10/18 History Exam Vital signs: Vital Signs 05/10/18 17:11 05/10/18 20:00 05/11/18 00:00 Temperature 97.9 F 98.6 F 99 F Pulse Rate 92 H 85 110 H Respiratory Rate 20 20 20 Blood Pressure 145/65 H 155/70 H 120/68 Pulse Oximetry 99 99 97 05/11/18 04:00 05/11/18 08:00 05/11/18 08:15 Temperature 98.1 F 99.5 F Pulse Rate 105 H 98 H Respiratory Rate 20 20 18 Blood Pressure 120/66 118/56 L Pulse Oximetry 97 94 L 05/11/18 13:00 Temperature 97.8 F Pulse Rate 89 Respiratory Rate 18 Blood Pressure 113/65 Pulse Oximetry 100 Intake & Output 05/10/18 05/11/18 05/11/18 18:59 06:59 18:59 Intake Total 50 / 50 1100 / 1100 50 / 50 Balance 50 / 50 1100 / 1100 50 / 50 Weight 63.5 kg 63.6 kg Intake: IV 50 / 50 1100 / 1100 50 / 50 NS Inj 1,000 ML @ 100 mls/hr IV 0 / 0 1000 / 1000 .CONT .Q10H [facility] Rx#:[id number] Zosyn 3.375 GM Premix 50 ML @ 50 / 50 100 / 100 50 / 50 100 mls/hr IV.SIG Q6H [facility] Rx#: [id number] Oral 0 / 0 0 / 0 Other: # Voids 4 1 Weight On Admission 63.5 kg Narrative: GENERAL: Alert and awake; crying SKIN: Warm and dry. HEAD: Atraumatic. Normocephalic. EYES: Pupils equal and round. No scleral icterus. No injection or drainage. ENT: No nasal bleeding or discharge. Mucous membranes pink and moist. NECK: Trachea midline. CARDIOVASCULAR: Regular rate and rhythm. RESPIRATORY: No accessory muscle use. Clear to auscultation. Breath sounds equal bilaterally. GASTROINTESTINAL: Abdomen soft, nondistended; right upper quadrant tenderness with palpation. MUSCULOSKELETAL: Extremities without clubbing, cyanosis, or edema. No obvious deformities. NEUROLOGICAL: Awake and alert. No obvious cranial nerve deficits. Motor grossly within normal limits. Five out of 5 muscle strength in the arms and legs. Normal speech. PSYCHIATRIC: Appropriate mood and affect; insight and judgment normal. <Gabriella Patel - Last Filed: 05/12/18 14:54> Vital signs: Vital Signs 05/13/18 20:00 05/13/18 20:14 05/13/18 21:00 Temperature 98.6 F Pulse Rate 86 81 Respiratory Rate 18 18 Blood Pressure 120/60 Pulse Oximetry 98 05/14/18 00:00 05/14/18 00:05 05/14/18 04:00 Temperature 98.2 F 98.5 F Pulse Rate 77 70 72 Respiratory Rate 18 18 Blood Pressure 117/58 L 134/71 Pulse Oximetry 96 97 05/14/18 08:00 05/14/18 12:00 Temperature 98.3 F 98.2 F Pulse Rate 74 93 H Respiratory Rate 18 20 Blood Pressure 130/60 126/66 Pulse Oximetry 97 98 Intake & Output 05/13/18 05/14/18 05/14/18 18:59 06:59 18:59 Intake Total 50 / 50 850 / 850 Output Total Balance 50 / 50 820 / 820 Intake: IV 50 / 50 Zosyn 3.375 GM Premix 50 ML @ 50 / 50 100 mls/hr IV.SIG Q6H [facility] Rx#: [id number] Oral 850 / 850 Output: Wound Drainage # 1 Right Lateral Abdomen Other: # Voids 5 Date of Last Bowel Movement 05/09/18 05/09/18 05/14/18 # Bowel Movements 1 <Deion Moeller S - Last Filed: 05/14/18 16:19> Results - Labs 05/11/18 05:50 05/11/18 05:50 Laboratory Results CBC w Diff Auto diff final 05/11/18 05:50 WBC 16.3 th/mm3 (4.0-11.0) H 05/11/18 05:50 RBC 3.87 mil/mm3 (4.00-5.30) L 05/11/18 05:50 Hgb 11.9 gm/dL (11.6-15.3) 05/11/18 05:50 Hct 35.6 % (35.0-46.0) 05/11/18 05:50 MCV 92.0 fL (80.0-100.0) 05/11/18 05:50 MCH 30.8 pg (27.0-34.0) 05/11/18 05:50 MCHC 33.4 % (32.0-36.0) 05/11/18 05:50 RDW 11.9 % (11.6-17.2) 05/11/18 05:50 Plt Count 283 th/mm3 (150-450) 05/11/18 05:50 MPV 7.9 fL (7.0-11.0) 05/11/18 05:50 Neut % (Auto) 87.6 % (16.0-70.0) H 05/11/18 05:50 Lymph % (Auto) 4.5 % (9.0-44.0) L 05/11/18 05:50 [place] % (Auto) 5.8 % (0.0-8.0) 05/11/18 05:50 Eos % (Auto) 0.1 % (0.0-4.0) 05/11/18 05:50 Baso % (Auto) 2.0 % (0.0-2.0) 05/11/18 05:50 Neut # (Auto) 14.4 th/mm3 (1.8-7.7) H 05/11/18 05:50 Lymph # (Auto) 0.7 th/mm3 (1.0-4.8) L 05/11/18 05:50 [place] # (Auto) 0.9 th/mm3 (0.0-0.9) 05/11/18 05:50 Eos # (Auto) 0.0 th/mm3 (0.0-0.4) 05/11/18 05:50 Baso # (Auto) 0.3 th/mm3 (0.0-0.2) H 05/11/18 05:50 WBC Differential . 05/11/18 05:50 Differential Comment . 05/11/18 05:50 PT 10.6 sec (9.8-11.6) 05/10/18 18:00 INR 1.0 Ratio 05/10/18 18:00 APTT 28.0 sec (24.3-30.1) 05/10/18 18:00 Sodium 138 meq/L (136-145) 05/11/18 05:50 Potassium 3.7 meq/L (3.5-5.1) 05/11/18 05:50 Chloride 105 meq/L (98-107) 05/11/18 05:50 Carbon Dioxide 25.9 meq/L (21.0-32.0) 05/11/18 05:50 Anion Gap 7 meq/L (5-15) 05/11/18 05:50 BUN 7 mg/dL (7-18) 05/11/18 05:50 Creatinine 0.78 mg/dL (0.50-1.00) 05/11/18 05:50 Estimated GFR 77 mL/min (>89) L 05/11/18 05:50 Random Glucose 132 mg/dL (74-106) H 05/11/18 05:50 Calcium 8.5 mg/dL (8.5-10.1) D 05/11/18 05:50 Total Bilirubin 0.9 mg/dL (0.2-1.0) 05/11/18 05:50 AST 13 U/L (15-37) L 05/11/18 05:50 ALT 24 U/L (10-53) 05/11/18 05:50 Alkaline Phosphatase 65 U/L (45-117) 05/11/18 05:50 Total Protein 7.1 g/dL (6.4-8.2) D 05/11/18 05:50 Albumin 2.9 g/dL (3.4-5.0) L D 05/11/18 05:50 Lipase 115 U/L (73-393) 05/10/18 14:18 Urine Color Yellow (Yellw/Straw) 05/10/18 15:43 Urine Clarity Clear (Clear) 05/10/18 15:43 Urine pH 5.0 (5.0-8.5) 05/10/18 15:43 Ur Specific [place] Less/equal 1.005 (1.002-1.035) 05/10/18 15:43 Urine Protein Negative mg/dL (Neg-Trace) 05/10/18 15:43 Urine Glucose (UA) Negative mg/dL (Negative) 05/10/18 15:43 Urine Ketones Negative mg/dL (Negative) 05/10/18 15:43 Urine Occult Blood Trace (Negative) 05/10/18 15:43 Urine Nitrate Negative (Negative) 05/10/18 15:43 Urine Bilirubin Negative (Negative) 05/10/18 15:43 Urine Urobilinogen 0.2 mg/dL (Less than 2) 05/10/18 15:43 Ur Leukocyte Esterase Small (Negative) H 05/10/18 15:43 Urine RBC 4-15 /hpf (0-3) H 05/10/18 15:43 Urine WBC 6-8 /hpf (0-5) H 05/10/18 15:43 Ur Squamous Epith Cells 0-5 /hpf (0-5) 05/10/18 15:43 Urine Bacteria Few /hpf (None) H 05/10/18 15:43 Urine Trichomonas Moderate /hpf (None) H 05/10/18 15:43 Micro UA Comment Culture not ind 05/10/18 15:43 Urine Culture Comments Culture not ind 05/10/18 15:43 Serum Alcohol Less than 3 mg/dL (0-5) 05/10/18 14:18 Impressions GI Procedure 05/11/18 00:00 CONCLUSION: Normal appearance of the intra and extrahepatic biliary tree without obvious stone disease. Abdomen/Pelvis CT 05/11/18 07:46 CONCLUSION: 1. Interval worsening in the appearance of the gallbladder. The lumen remains distended with mural thickening and worsening pericholecystic fluid. Rim calcified 1.2 cm stone remains in the gallbladder neck. Spectrum of findings are characteristic of an acute cholecystitis. Patient would likely benefit from cholecystostomy tube placement. 2. Biliary stent remains stable in position and appropriately bridges the CBD and duodenum. Slight increase in the expected nondependent biliary air. 3. Mild atelectatic changes in both lung bases. This may be due to limited inspiratory effort associated with the patient's abdominal pain. 4. Minimal diverticular disease of the descending colon without diverticulitis. - Imaging CT scan - abdomen: report reviewed <Gabriella Patel - Last Filed: 05/12/18 14:54> - Labs 05/13/18 04:51 05/14/18 06:17 Abnormal lab results 05/14/18 Range/Units 06:17 Random Glucose 119 H (74-106) mg/dL Diabetes panel 05/14/18 Range/Units 06:17 Sodium 140 (136-145) meq/L Potassium 3.7 (3.5-5.1) meq/L Chloride 107 (98-107) meq/L Carbon Dioxide 27.5 (21.0-32.0) meq/L BUN 16 (7-18) mg/dL Creatinine 0.60 (0.50-1.00) mg/dL Calcium 8.7 (8.5-10.1) mg/dL Calcium panel 05/14/18 Range/Units 06:17 Calcium 8.7 (8.5-10.1) mg/dL Pituitary panel 05/14/18 Range/Units 06:17 Sodium 140 (136-145) meq/L Potassium 3.7 (3.5-5.1) meq/L Chloride 107 (98-107) meq/L Carbon Dioxide 27.5 (21.0-32.0) meq/L BUN 16 (7-18) mg/dL Creatinine 0.60 (0.50-1.00) mg/dL Calcium 8.7 (8.5-10.1) mg/dL Adrenal panel 05/14/18 Range/Units 06:17 Sodium 140 (136-145) meq/L Potassium 3.7 (3.5-5.1) meq/L Chloride 107 (98-107) meq/L Carbon Dioxide 27.5 (21.0-32.0) meq/L BUN 16 (7-18) mg/dL Creatinine 0.60 (0.50-1.00) mg/dL Calcium 8.7 (8.5-10.1) mg/dL All other labs normal. <Deion Moeller - Last Filed: 05/14/18 16:19> Assessment and Plan - Assessment (1) Acute cholecystitis Code(s): K81.0 - Acute cholecystitis Status: Acute Plan: 53-year-old female with abdominal pain; status post biliary stent removal -Patient continues to have right upper quadrant abdominal pain -We will plan for laparoscopic cholecystectomy tomorrow if OR time available -N.p.o. after midnight -Obtain consents -Hold anticoagulation -Explained procedure in detail to the patient and all questions answered -Thank you for this consult we will continue to follow - Plan Discussed Condition With: Dr. Sajan Raphael RN Dedrick Godwin <Gabriella Patel - Last Filed: 05/12/18 14:54> - Assessment (1) Acute cholecystitis Code(s): K81.0 - Acute cholecystitis Status: Acute Plan: patient seen at bedside c/o severe ruq pain ct shows acute cholecystitis with cholelithiasis iv abx pain control s/p stent removal will plan for OR for lap april, possible open, possible IOC discussed with patient in detail. - Attending Attestation The exam, history, and the medical decision-making described in the above note were completed with the assistance of the mid-level provider. I reviewed and agree with the findings presented. I attest that I had a [id number] encounter with the patient on the same day, and personally performed and documented my assessment and findings in the medical record. <Deion Moeller - Last Filed: 05/14/18 16:19>
[2018-05-11] MEDS: Pantoprazole Inj 40 MG Vial IV.PUSH SCH (17:06)
[2018-05-11] MEDS ORDERED: Morphine Inj 4 MG/ML Vial IV.PUSH ONE (21:30)
[2018-05-11] MEDS: Temazepam 15 MG Capsule PO PRN (21:35)
[2018-05-12] MEDS: Sod Chloride 0.9% Inj 1,000 ML IV.CONT SCH ×4 (00:10→21:14)
[2018-05-12] MEDS: Morphine Inj 4 MG/ML Vial IV.PUSH PRN ×3 (03:23→21:30)
[2018-05-12] MEDS: Piperacil/Tazo 3.375 GM Premix 50 ML IV.SIG SCH ×4 (03:30→21:18)
[2018-05-12] MEDS: Senna/Docusate Sodium 8.6/50 MG Tablet PO SCH ×2 (08:24→21:19)
[2018-05-12] MEDS ORDERED: Lidocaine 1%/Epinephrine 1:100,000 Inj 20 ML Vial ONE (10:06)
[2018-05-12] MEDS ORDERED: Bupivacaine/Epinephrine 0.5% Inj 50 ML Vial ONE (10:08)
[2018-05-12] MEDS ORDERED: Glycopyrrolate Inj 1 MG/5 ML Syringe IV.PUSH ONE (12:00)
[2018-05-12] MEDS ORDERED: Lidocaine PF 1% Inj 5 ML Syringe INFILTRATN ONE (12:00)
[2018-05-12] MEDS ORDERED: Neostigmine Inj 5 MG/5 ML Syringe IV.PUSH ONE (12:00)
--- NOTE | 2018-05-12 12:00 | P.OP ---
- Preoperative Diagnosis (1) Acute cholecystitis - Postoperative Diagnosis (1) Acute cholecystitis Date of procedure: 05/12/18 Procedure: lap april Anesthesia: GETA Surgeon: Deion Moeller MD Estimated blood loss (mL): 5 Pathology: other (gallbladder) Operation and Findings: inflamed gallbladder
--- NOTE | 2018-05-12 12:10 | P.PNGI ---
Subjective Interval history: Pt seen earlier this AM around 10:15 Pt complaining of continued abdominal pain overnight. Some nausea, no emesis. Planned for lap april today. <Darleen Vitale - Last Filed: 05/12/18 12:04> Interval history: Patient was seen and examined, agree with above note, she is going for lap april today, we will sign off as far as GI service <Amy Strange - Last Filed: 05/12/18 16:26> Physical Exam Vital signs: Vital Signs 05/11/18 13:00 05/11/18 16:30 05/11/18 20:00 Temperature 97.8 F 97.8 F 98.3 F Pulse Rate 89 96 H 106 H Respiratory Rate 18 18 18 Blood Pressure 113/65 123/63 155/68 H Pulse Oximetry 100 96 97 05/11/18 21:20 05/12/18 00:00 05/12/18 00:05 Temperature 98.4 F Pulse Rate 104 H 107 H 107 H Respiratory Rate 18 Blood Pressure 118/62 Pulse Oximetry 95 05/12/18 04:00 05/12/18 08:00 Temperature 99.9 F H 97.8 F Pulse Rate 99 H 99 H Respiratory Rate 18 16 Blood Pressure 104/58 L 117/58 L Pulse Oximetry 96 98 Intake & Output 05/11/18 05/12/18 05/12/18 18:59 06:59 18:59 Intake Total 1880 / 1880 1150 / 1150 Balance 1880 / 1880 1150 / 1150 Weight 63.4 kg Intake: IV 1050 / 1050 1150 / 1150 NS Inj 1,000 ML @ 100 mls/hr IV 1000 / 1000 1000 / 1000 .CONT .Q10H [facility] Rx#:[id number] Zosyn 3.375 GM Premix 50 ML @ 50 / 50 150 / 150 100 mls/hr IV.SIG Q6H [facility] Rx#: [id number] Oral 480 / 480 Anesthesia Amount 350 / 350 Other: # Voids 1 3 Date of Last Bowel Movement 05/09/18 05/09/18 - Constitutional no acute distress - Routine HEENT Exam Head: Present: normocephalic, atraumatic - Routine Respiratory Exam Absent: accessory muscle use - Routine Abdominal Exam Present: soft, normoactive bowel sounds, tenderness. Absent: distended - Routine Skin Exam Present: dry, warm - Routine Neurological Exam Present: alert, oriented X3 <Darleen Vitale - Last Filed: 05/12/18 12:04> Vital signs: Vital Signs 05/11/18 16:30 05/11/18 20:00 05/11/18 21:20 Temperature 97.8 F 98.3 F Pulse Rate 96 H 106 H 104 H Respiratory Rate 18 18 Blood Pressure 123/63 155/68 H Pulse Oximetry 96 97 05/12/18 00:00 05/12/18 00:05 05/12/18 04:00 Temperature 98.4 F 99.9 F H Pulse Rate 107 H 107 H 99 H Respiratory Rate 18 18 Blood Pressure 118/62 104/58 L Pulse Oximetry 95 96 05/12/18 08:00 05/12/18 14:25 05/12/18 14:30 Temperature 97.8 F 98.4 F Pulse Rate 99 H 104 H 102 H Respiratory Rate 16 16 16 Blood Pressure 117/58 L 141/81 H 147/67 H Pulse Oximetry 98 99 96 05/12/18 14:45 05/12/18 15:00 05/12/18 15:15 Temperature Pulse Rate 98 H 90 90 Respiratory Rate 16 16 16 Blood Pressure 152/77 H 136/73 138/74 Pulse Oximetry 95 95 95 Intake & Output 05/11/18 05/12/18 05/12/18 18:59 06:59 18:59 Intake Total 1880 / 1880 1150 / 1150 1000 / 1000 Output Total 170 / 170 Balance 1880 / 1880 1150 / 1150 830 / 830 Weight 63.4 kg Intake: IV 1050 / 1050 1150 / 1150 NS Inj 1,000 ML @ 100 mls/hr IV 1000 / 1000 1000 / 1000 .CONT .Q10H [facility] Rx#:[id number] Zosyn 3.375 GM Premix 50 ML @ 50 / 50 150 / 150 100 mls/hr IV.SIG Q6H [facility] Rx#: [id number] Oral 480 / 480 Anesthesia Amount 350 / 350 1000 / 1000 Output: Estimated Blood Loss 150 / 150 Wound Drainage 20 / 20 # 1 Right Lateral Abdomen Other: # Voids 1 3 Date of Last Bowel Movement 05/09/18 05/09/18 <Amy Strange - Last Filed: 05/12/18 16:26> Results - Labs CBC & Chem 7: 05/11/18 05:50 05/11/18 05:50 Microbiology 05/10/18 18:00 Blood - Peripheral Aerobic Blood Culture - Preliminary No growth in 2 days 05/10/18 18:00 Blood - Peripheral Anaerobic Blood Culture - Preliminary No growth in 2 days 05/10/18 18:00 Blood - Peripheral Aerobic Blood Culture - Preliminary No growth in 2 days 05/10/18 18:00 Blood - Peripheral Anaerobic Blood Culture - Preliminary No growth in 2 days - Imaging Impressions GI Procedure 05/11/18 00:00 CONCLUSION: Normal appearance of the intra and extrahepatic biliary tree without obvious stone disease. <Darleen Vitale - Last Filed: 05/12/18 12:04> - Labs CBC & Chem 7: 05/11/18 05:50 05/11/18 05:50 Microbiology 05/10/18 18:00 Blood - Peripheral Aerobic Blood Culture - Preliminary No growth in 2 days 05/10/18 18:00 Blood - Peripheral Anaerobic Blood Culture - Preliminary No growth in 2 days 05/10/18 18:00 Blood - Peripheral Aerobic Blood Culture - Preliminary No growth in 2 days 05/10/18 18:00 Blood - Peripheral Anaerobic Blood Culture - Preliminary No growth in 2 days <Amy Strange - Last Filed: 05/12/18 16:26> Assessment and Plan - Plan Assessment: - Cholecystitis with choledocholithiasis- pt with biliary stent placement via ERCP Transferred from [place] to [facility] for ERCP and lap cholecystectomy. CT abdomen and pelvis WO IV contrast (05/11) Interval worsening in the appearance of the gallbladder. The lumen remains distended with mural thickening and worsening pericholecystic fluid. Rim calcified 1.2 cm stone remains in the gallbladder neck. Spectrum of findings are characteristic of an acute cholecystitis. Biliary stent remains stable in position and appropriately bridges the CBD and duodenum. Slight increase in the expected nondependent biliary air. Minimal diverticular disease of the descending colon without diverticulitis. ERCP (05/11) Esophagus: Normal. Stomach: normal. Duodenum: there was a stent in the duodenum which was removed by snare. Ampulla: sphincterotomy was done. CBD filling defect in the common bile duct, pancreatic duct not examined. Therapy sweeping the duct with balloon to retrieve the stone (05/12) Pt with continued abdominal pain and some nausea today, no emesis. No repeat labs from today. Planned for lap cholecystectomy Plan: Faith chen Further recommendations per GS Our service will sign off Have pt follow up with GI after DC Pt has been seen and examined by myself and Dr. Strange and this note is written on his behalf <Darleen Vitale - Last Filed: 05/12/18 12:04>
[2018-05-12] MEDS ORDERED: fentaNYL Citrate Inj 100 MCG/2 ML Ampul ONE (14:34)
[2018-05-12] MEDS ORDERED: *morphine SULFATE 4 MG/ML PERIprocedure ONLY ONE (15:18)
--- NOTE | 2018-05-12 16:58 | P.PNIM ---
Subjective Interval history: patient seen after surgery and stated she is tired and doing a lot better. she stated pain has improved drastically after surgery. No other complaints. She was seen walking in room from restroom to bed. Physical Exam Vital signs: Vital Signs 05/11/18 20:00 05/11/18 21:20 05/12/18 00:00 Temperature 98.3 F 98.4 F Pulse Rate 106 H 104 H 107 H Respiratory Rate 18 18 Blood Pressure 155/68 H 118/62 Pulse Oximetry 97 95 05/12/18 00:05 05/12/18 04:00 05/12/18 08:00 Temperature 99.9 F H 97.8 F Pulse Rate 107 H 99 H 99 H Respiratory Rate 18 16 Blood Pressure 104/58 L 117/58 L Pulse Oximetry 96 98 05/12/18 14:25 05/12/18 14:30 05/12/18 14:45 Temperature 98.4 F Pulse Rate 104 H 102 H 98 H Respiratory Rate 16 16 16 Blood Pressure 141/81 H 147/67 H 152/77 H Pulse Oximetry 99 96 95 05/12/18 15:00 05/12/18 15:15 Temperature Pulse Rate 90 90 Respiratory Rate 16 16 Blood Pressure 136/73 138/74 Pulse Oximetry 95 95 Intake & Output 05/11/18 05/12/18 05/12/18 18:59 06:59 18:59 Intake Total 1880 / 1880 1150 / 1150 1000 / 1000 Output Total 170 / 170 Balance 1880 / 1880 1150 / 1150 830 / 830 Weight 63.4 kg Intake: IV 1050 / 1050 1150 / 1150 NS Inj 1,000 ML @ 100 mls/hr IV 1000 / 1000 1000 / 1000 .CONT .Q10H ANTONIO Rx#:[id number] Zosyn 3.375 GM Premix 50 ML @ 50 / 50 150 / 150 100 mls/hr IV.SIG Q6H ANTONIO Rx#: [id number] Oral 480 / 480 Anesthesia Amount 350 / 350 1000 / 1000 Output: Estimated Blood Loss 150 / 150 Wound Drainage / 20 # 1 Right Lateral Abdomen Other: # Voids 1 3 Date of Last Bowel Movement 05/09/18 05/09/18 - Constitutional no acute distress - Routine Neck Exam Present: supple - Routine Respiratory Exam Present: CTA bilaterally - Routine Cardiovascular Exam Present: RRR, S1, S2 - Routine Abdominal Exam Present: soft Comments: no TTP. surgical wound dressing in place d/c/i. no peritoneal signs. - Routine Extremities Exam Comments: neg edema Results - Labs CBC & Chem 7: 05/11/18 05:50 05/11/18 05:50 Microbiology 05/10/18 18:00 Blood - Peripheral Aerobic Blood Culture - Preliminary No growth in 2 days 05/10/18 18:00 Blood - Peripheral Anaerobic Blood Culture - Preliminary No growth in 2 days 05/10/18 18:00 Blood - Peripheral Aerobic Blood Culture - Preliminary No growth in 2 days 05/10/18 18:00 Blood - Peripheral Anaerobic Blood Culture - Preliminary No growth in 2 days Assessment and Plan - Assessment (1) Sepsis Code(s): A41.9 - Sepsis, unspecified organism Status: Acute (2) Abdominal pain Code(s): R10.9 - Unspecified abdominal pain Status: Acute - Plan Sepsis -Patient meets criteria with leukocytosis, tachycardia, CT finding of possible gallbladder/distal cystic duct obstruction -Patient was given Zosyn and Flagyl in the emergency department, -continue Zosyn -Urinalysis does not indicate any signs of infection -Clinically drastic improvement. Seemed to resolve. Blood cultures are negative. Most likely secondary to acute cholecystitis. -Continue with Zosyn. CT abnormality with gallbladder wall thickening, possible gallbladder/cystic duct obstruction -Patient does have history of biliary stent placement just over a month ago -Liver enzymes were unremarkable for any signs of obstruction -Consulted environmental permitting specialist, discussed with Dr. Morales who recommended biliary scan, after reviewing her records it also indicates that the patient should have had the biliary stent removed approximately 5 days ago. -Repeat CT scan was performed secondary to worsening of her pain, does indicate worsening of the gallbladder. Radiology recommending possible need for cholecystotomy tube -General surgery and patient had laparoscopic cholecystectomy today 05/12/2018. Patient was placed on a clear liquid diet. Continue management per surgeon. Patient with a history of alcohol abuse -No signs of alcoholic withdrawals. -We will need to monitor for any withdrawal symptoms DVT prevention -Sequential compression devices (2) Abdominal pain Qualifiers: Abdominal location: left upper quadrant Qualified Code(s): R10.12 - Left upper quadrant pain
[2018-05-12] MEDS: Pantoprazole Inj 40 MG Vial IV.PUSH SCH (19:39)
[2018-05-12] MEDS: Temazepam 15 MG Capsule PO PRN (21:30)
--- NOTE | 2018-05-12 22:24 | MP ---
cc: Deion Moeller MD DATE OF OPERATION: 05/12/2018 PREOPERATIVE DIAGNOSES: Acute cholecystitis, cholelithiasis. POSTOPERATIVE DIAGNOSES: Acute cholecystitis, cholelithiasis. Hydrops with abscess. SURGEON: Deion Moeller MD PROCEDURE PERFORMED: Laparoscopic cholecystectomy. ANESTHESIA: GETA. IV FLUIDS: See anesthesia sheet. ESTIMATED BLOOD LOSS: 15 mL DRAINS: A 10 ANDREI drain to right upper quadrant. FINDINGS: Markedly distended gallbladder. Purulent pus contained within gallbladder and evidence of hydrops, acutely severely inflamed gallbladder with omental adhesion. Good hemostasis. SPECIMENS: 1. Gallbladder. 2. Purulent contents of the gallbladder was sent for cultures and sensitivity, Gram stain. COMPLICATIONS: None. WOUND CLASSIFICATION: Dirty. INDICATIONS: The patient is a 53-year-old female who presented initially with right upper quadrant abdominal pain. She was noted to have a common duct stone, status post endoscopic retrograde cholangiopancreatography and stent. She presented with persistent right upper quadrant pain. Sent was removed and a decision for laparoscopic cholecystectomy. DETAILS OF PROCEDURE: The patient was taken to the operating suite, placed in supine position. She was prepped and draped in the usual sterile fashion after induction of general endotracheal anesthesia. The timeout done stating correct patient, procedure, and surgical site. Attention was first directed to the umbilicus where a small stab nikolas incision was made with an 11 blade after injection of local anesthetic. A Visiport 5 mm Optiview port was used to enter the abdomen safely. On cursory inspection, no evidence of injury. Abdomen insufflated to 15 mm pneumoperitoneum. The patient was placed in reverse Trendelenburg and airplaned to the left. Three other ports were placed, including 12 mm epigastric followed by two right subcostal 5 mm ports. The omentum was noted to be draped over the gallbladder. It had multiple adhesions to the gallbladder. Gallbladder was markedly distended with very thickened wall and hemorrhagic in appearance. The gallbladder Endo aspiration needle was used with 180 mL aspirated, noted to be serous fluid indicative of hydrops, followed by a thick purulent pus-containing gallbladder. This was completely decompressed and aspirated. Gallbladder was grasped and retracted cephalad. Tediously, the adhesions of the omentum were taken off the gallbladder. Gallbladder had a very thick rind as well, and again noted to be indurated, and this was gently mobilized and dissected out. Cystic duct and cystic artery were mobilized. The cystic artery was identified and 2 clips placed proximal, one distal, this was clipped and transected with Endo Jitendra. Further dissection again to mobilize the infundibulum and cystic duct were done somewhat difficultly due to the significant inflammatory process and adhesions. Therefore approached turned to dome-down, where hook electro Bovie cautery was used in a dome-down approach in fascia. gallbladder was finally mobilized off the gallbladder fossa. Hemostasis was obtained. PDS Endoloop was used x 2 proximally and one was placed distally on the gallbladder. The gallbladder was ligated. Gallbladder was placed in an Endo Catch bag and removed from the abdomen from the epigastric port. Irrigation done until the effluent was clear. Hemostasis was obtained. A 10 Cortez drain was placed in the gallbladder bed and put through one of the ports and secured with 2-0 nylon. The other ports were removed. The epigastric port was closed with 0 Vicryl UR-6 x 2. Local anesthetic injected. 4-0 Monocryl used for subcuticular suture on all port sites. Sterile dressings were placed. The patient tolerated the procedure well. There was no intraoperative complications. All lap and instrument counts correct procedure, patient was extubated and taken stable to PACU. MD ANAHI Ferguson/jean carlos/hawa , 07:44 PM , 07:54 PM
[2018-05-13] MEDS: Morphine Inj 4 MG/ML Vial IV.PUSH PRN ×3 (01:57→10:53)
[2018-05-13 05:05] LABS: Baso % (Auto) 0.1 % (0.0-2.0); Hematocrit 32.1 % (35.0-46.0); Hemoglobin 10.7 gm/dL (11.6-15.3); Lymph # (Auto) 0.7 th/mm3 (1.0-4.8); Lymph % (Auto) 4.7 % (9.0-44.0); Mean Corpuscular HGB Conc 33.3 % (32.0-36.0); Mean Corpuscular Hemoglobin 30.2 pg (27.0-34.0); Mean Corpuscular Volume 90.5 fL (80.0-100.0); Mono # (Auto) 0.7 th/mm3 (0.0-0.9); Mono % (Auto) 4.4 % (0.0-8.0); Neut # (Auto) 13.6 th/mm3 (1.8-7.7); Neut % (Auto) 90.8 % (16.0-70.0); Platelet Count 292 th/mm3 (150-450); Red Blood Count 3.55 mil/mm3 (4.00-5.30); Red Cell Distribution Width 12.9 % (11.6-17.2)
[2018-05-13 05:36] LABS: Alanine Aminotransferase 30 U/L (10-53); Albumin 2.5 g/dL (3.4-5.0); Anion Gap 8 meq/L (5-15); Aspartate Aminotransferase 25 U/L (15-37); Blood Urea Nitrogen 7 mg/dL (7-18); Calcium 8.8 mg/dL (8.5-10.1); Chloride 108 meq/L (98-107); Glomerular Filtration Rate Greater Than 89 mL/min (>89); Glucose,Random 156 mg/dL (74-106); Potassium 3.4 meq/L (3.5-5.1); Sodium 142 meq/L (136-145)
[2018-05-13 05:39] LABS: Alkaline Phosphatase 70 U/L (45-117); Total Protein 7.1 g/dL (6.4-8.2)
[2018-05-13] MEDS: Sod Chloride 0.9% Inj 1,000 ML IV.CONT SCH (06:05)
[2018-05-13] MEDS: Piperacil/Tazo 3.375 GM Premix 50 ML IV.SIG SCH (06:10)
[2018-05-13] MEDS: Senna/Docusate Sodium 8.6/50 MG Tablet PO SCH ×2 (10:53→21:01)
--- NOTE | 2018-05-13 12:55 | P.PNIM ---
Subjective Interval history: patient stated she is doing well. She stated she tolerated a soft diet this morning. + making urine on own. ambulating in hallways. no BM yet. pain controlled. Physical Exam Vital signs: Vital Signs 05/12/18 14:25 05/12/18 14:30 05/12/18 14:45 Temperature 98.4 F Pulse Rate 104 H 102 H 98 H Respiratory Rate 16 16 16 Blood Pressure 141/81 H 147/67 H 152/77 H Pulse Oximetry 99 96 95 05/12/18 15:00 05/12/18 15:15 05/12/18 16:00 Temperature 98.0 F Pulse Rate 90 90 86 Respiratory Rate 16 16 16 Blood Pressure 136/73 138/74 136/66 Pulse Oximetry 95 95 95 05/12/18 20:00 05/13/18 00:00 05/13/18 00:10 Temperature 97.9 F 98.1 F Pulse Rate 88 88 85 Respiratory Rate 16 16 Blood Pressure 117/56 L 122/60 Pulse Oximetry 96 99 05/13/18 04:00 05/13/18 04:05 05/13/18 08:00 Temperature 98.0 F 98.3 F Pulse Rate 79 86 80 Respiratory Rate 16 16 Blood Pressure 127/59 L 114/64 Pulse Oximetry 98 96 05/13/18 12:00 Temperature 98.8 F Pulse Rate 94 H Respiratory Rate 14 Blood Pressure 120/59 L Pulse Oximetry 95 Intake & Output 05/12/18 05/13/18 05/13/18 18:59 06:59 18:59 Intake Total 1050 / 1050 50 / 50 50 / 50 Output Total 170 / 170 Balance 880 / 880 50 / 50 50 / 50 Weight 64 kg Intake: IV 50 / 50 50 / 50 50 / 50 Zosyn 3.375 GM Premix 50 ML @ 50 / 50 50 / 50 50 / 50 100 mls/hr IV.SIG Q6H ANTONIO Rx#: [id number] Anesthesia Amount 1000 / 1000 Output: Estimated Blood Loss 150 / 150 Wound Drainage 20 / 20 # 1 Right Lateral Abdomen 20 / 20 Other: # Voids 1 7 Date of Last Bowel Movement 05/09/18 05/09/18 - Constitutional no acute distress - Routine Respiratory Exam Present: CTA bilaterally - Routine Cardiovascular Exam Present: RRR, S1, S2 Comments: no r/m/g. - Routine Abdominal Exam Present: soft, normoactive bowel sounds Comments: + TTP at surgical site. wound d/c/i, negative for peritoneal signs. - Routine Extremities Exam Comments: negative edema Results - Labs CBC & Chem 7: 05/13/18 04:51 05/13/18 04:51 Laboratory Results - last 24 hr 05/13/18 05/13/18 04:51 04:51 WBC 15.0 H RBC 3.55 L Hgb 10.7 L Hct 32.1 L MCV 90.5 MCH 30.2 MCHC 33.3 RDW 12.9 Plt Count 292 MPV 8.0 Neut % (Auto) 90.8 H Lymph % (Auto) 4.7 L Mason % (Auto) 4.4 Eos % (Auto) 0.0 Baso % (Auto) 0.1 Neut # (Auto) 13.6 H Lymph # (Auto) 0.7 L Mason # (Auto) 0.7 Eos # (Auto) 0.0 Baso # (Auto) 0.0 WBC Differential . Differential Comment Auto diff final Sodium 142 Potassium 3.4 L Chloride 108 H Carbon Dioxide 26.0 Anion Gap 8 BUN 7 Creatinine 0.64 Estimated GFR Greater than 89 Random Glucose 156 H Calcium 8.8 Total Bilirubin 0.2 AST 25 ALT 30 Alkaline Phosphatase 70 Total Protein 7.1 Albumin 2.5 L Microbiology 05/12/18 13:01 Fluid - Gallbladder Gram Stain - Final 05/12/18 13:01 Fluid - Gallbladder Wound Culture - Preliminary 05/10/18 18:00 Blood - Peripheral Aerobic Blood Culture - Preliminary No growth in 3 days 05/10/18 18:00 Blood - Peripheral Anaerobic Blood Culture - Preliminary No growth in 3 days 05/10/18 18:00 Blood - Peripheral Aerobic Blood Culture - Preliminary No growth in 3 days 05/10/18 18:00 Blood - Peripheral Anaerobic Blood Culture - Preliminary No growth in 3 days 05/12/18 13:01 Fluid - Gallbladder Fungal Smear - Final No fungal elements seen Assessment and Plan - Assessment (1) Sepsis Code(s): A41.9 - Sepsis, unspecified organism Status: Acute (2) Abdominal pain Code(s): R10.9 - Unspecified abdominal pain Status: Acute - Plan Sepsis -RESOLVED -Patient meets criteria with leukocytosis, tachycardia, CT finding of possible gallbladder/distal cystic duct obstruction -Patient was given Zosyn and Flagyl in the emergency department, -continue Zosyn -Urinalysis does not indicate any signs of infection -Clinically drastic improvement. Blood cultures are negative. Most likely secondary to acute cholecystitis. -switch to oral levaquin. CT abnormality with gallbladder wall thickening, possible gallbladder/cystic duct obstruction -Patient does have history of biliary stent placement just over a month ago -Liver enzymes were unremarkable for any signs of obstruction -Consulted crane helper, discussed with Dr. Morales who recommended biliary scan, after reviewing her records it also indicates that the patient should have had the biliary stent removed approximately 5 days ago. -Repeat CT scan was performed secondary to worsening of her pain, does indicate worsening of the gallbladder. Radiology recommending possible need for cholecystotomy tube -General surgery and patient had laparoscopic cholecystectomy today 05/12/2018. -her diet advance today. Patient with a history of alcohol abuse -No signs of alcoholic withdrawals. -We will need to monitor for any withdrawal symptoms DVT prevention -Sequential compression devices Discharge Planning: patient needs BM and clearance from general surgery for discharge. (2) Abdominal pain Qualifiers: Abdominal location: left upper quadrant Qualified Code(s): R10.12 - Left upper quadrant pain
--- NOTE | 2018-05-13 14:06 | P.PNGS ---
Subjective Patient reports: feels better, tolerating liquids well, no flatus Physical Exam Vital signs: Vital Signs 05/12/18 14:25 05/12/18 14:30 05/12/18 14:45 Temperature 98.4 F Pulse Rate 104 H 102 H 98 H Respiratory Rate 16 16 16 Blood Pressure 141/81 H 147/67 H 152/77 H Pulse Oximetry 99 96 95 05/12/18 15:00 05/12/18 15:15 05/12/18 16:00 Temperature 98.0 F Pulse Rate 90 90 86 Respiratory Rate 16 16 16 Blood Pressure 136/73 138/74 136/66 Pulse Oximetry 95 95 95 05/12/18 20:00 05/13/18 00:00 05/13/18 00:10 Temperature 97.9 F 98.1 F Pulse Rate 88 88 85 Respiratory Rate 16 16 Blood Pressure 117/56 L 122/60 Pulse Oximetry 96 99 05/13/18 04:00 05/13/18 04:05 05/13/18 08:00 Temperature 98.0 F 98.3 F Pulse Rate 79 86 72 Respiratory Rate 16 16 Blood Pressure 127/59 L 114/64 Pulse Oximetry 98 96 05/13/18 12:00 Temperature 98.8 F Pulse Rate 94 H Respiratory Rate 14 Blood Pressure 120/59 L Pulse Oximetry 95 Intake & Output 05/12/18 05/13/18 05/13/18 18:59 06:59 18:59 Intake Total 1050 / 1050 50 / 50 50 / 50 Output Total 170 / 170 Balance 880 / 880 50 / 50 50 / 50 Weight 64 kg Intake: IV 50 / 50 50 / 50 50 / 50 Zosyn 3.375 GM Premix 50 ML @ 50 / 50 50 / 50 50 / 50 100 mls/hr IV.SIG Q6H ANTONIO Rx#: [id number] Anesthesia Amount 1000 / 1000 Output: Estimated Blood Loss 150 / 150 Wound Drainage 20 / 20 # 1 Right Lateral Abdomen 20 / 20 Other: # Voids 1 7 Date of Last Bowel Movement 05/09/18 05/09/18 05/09/18 - Routine Respiratory Exam Present: CTA bilaterally - Routine Cardiovascular Exam Present: RRR - Routine Abdominal Exam Present: soft (MIRZA Serosang, incision s c/d/i) Assessment and Plan - Assessment (1) Acute cholecystitis Code(s): K81.0 - Acute cholecystitis Status: Acute Plan: 53-year-old female with abdominal pain; status post biliary stent removal -s/p lap april POD 1- infected abscess within gallbladder - Soft diet -pain control - dvt ppx - mirza sxn
[2018-05-13] MEDS ORDERED: LORazepam 1 MG Tablet PO PRN (16:57)
[2018-05-13] MEDS: levoFLOXacin 500 MG Tablet PO SCH (21:01)
[2018-05-13] MEDS: Temazepam 15 MG Capsule PO PRN (21:59)
[2018-05-14 07:53] LABS: Anion Gap 6 meq/L (5-15); Blood Urea Nitrogen 16 mg/dL (7-18); Calcium 8.7 mg/dL (8.5-10.1); Carbon Dioxide 27.5 meq/L (21.0-32.0); Chloride 107 meq/L (98-107); Glomerular Filtration Rate Greater Than 89 mL/min (>89); Glucose,Random 119 mg/dL (74-106); Potassium 3.7 meq/L (3.5-5.1); Sodium 140 meq/L (136-145)
[2018-05-14] MEDS: Senna/Docusate Sodium 8.6/50 MG Tablet PO SCH (08:58)
[2018-05-14] MEDS: levoFLOXacin 500 MG Tablet PO SCH (08:58)
--- NOTE | 2018-05-14 10:53 | P.PNGS ---
Subjective Patient reports: feels better, pain is less, tolerating liquids well, bowel movement, afebrile Physical Exam Vital signs: Vital Signs 05/13/18 12:00 05/13/18 16:00 05/13/18 20:00 Temperature 98.8 F 97.9 F 98.6 F Pulse Rate 94 H 84 86 Respiratory Rate 14 16 18 Blood Pressure 120/59 L 141/70 H 120/60 Pulse Oximetry 95 98 98 05/13/18 20:14 05/13/18 21:00 05/14/18 00:00 Temperature 98.2 F Pulse Rate 81 77 Respiratory Rate 18 18 Blood Pressure 117/58 L Pulse Oximetry 96 05/14/18 00:05 05/14/18 04:00 05/14/18 08:00 Temperature 98.5 F 98.3 F Pulse Rate 70 72 74 Respiratory Rate 18 18 Blood Pressure 134/71 130/60 Pulse Oximetry 97 97 Intake & Output 05/13/18 05/14/18 05/14/18 18:59 06:59 18:59 Intake Total 50 / 50 850 / 850 Output Total 30 / 30 Balance 50 / 50 820 / 820 Intake: IV 50 / 50 Zosyn 3.375 GM Premix 50 ML @ 50 / 50 100 mls/hr IV.SIG Q6H ANTONIO Rx#: [id number] Oral 850 / 850 Output: Wound Drainage 30 / 30 # 1 Right Lateral Abdomen 30 / 30 Other: # Voids 5 Date of Last Bowel Movement 05/09/18 05/09/18 05/14/18 # Bowel Movements 1 - Routine Abdominal Exam Present: soft, normoactive bowel sounds, wound, drain Comments: wounds clean/dry, drain with minimal serosang fluid Assessment and Plan - Assessment (1) Acute cholecystitis Code(s): K81.0 - Acute cholecystitis Status: Acute Plan: 53-year-old female with abdominal pain; status post biliary stent removal -s/p lap april POD 1- infected abscess within gallbladder - Soft diet -pain control - dvt ppx - mirza sxn - Plan ok for DC home with drain continue po abx - RX on chart FU Wednesday or Wednesday with DR. Moeller for drain removal [phone]
--- NOTE | 2018-05-14 14:16 | P.DS ---
Date of admission: 05/10/18 16:27 Primary care physician: No Primary Care Physician Anticipated date of discharge: 05/14/18 Brief History from admission: 53-year-old female with known history of substance abuse, alcohol abuse, recent hospitalization with biliary stent placement, medical noncompliance who presented the hospital because of abdominal pain. Patient indicates that she was just here about a month ago and underwent full evaluation and workup to include insertion of a biliary stent. Patient states that when she had discharged she has been experiencing intermittent abdominal pain. Patient states that approximate 2 weeks ago she ate a hamburger and a severe abdominal pain and was brought to the emergency department and was discharged back home. This time the patient states that she is awake this morning approximate 5:55 AM and she had some fruit and got significant abdominal pain where she described as a fullness sensation in her upper abdomen pushing up on her lungs. Discomfort would not go away so she came to the emergency department for evaluation. Patient had workup done with laboratory studies which appear to be unremarkable. CT scan does indicate gallbladder distention with mural thickening or pericholecystic fluid. Findings could represent gallbladder or cystic duct obstruction in appropriate setting. Because of that reason the ER physician recommended the patient be admitted to the hospital with possible GI or surgical consultation. After speaking with the patient she is sitting in the bed appears to be quite comfortable. I discussed with her if she was able to follow-up with the GI physician who placed a biliary stent. However she states that due to lack of money she has been unable to go for follow-up. She states that it was not related to insurance because she does have insurance. Records do indicate that the patient was supposed to have follow-up with the GI physician and then in 1 month the stent was to be removed which would have been 05/04/18. However she has not followed up with the GI physician for evaluation. DS: Diagnosis - Discharge Diagnosis (1) Common bile duct (CBD) obstruction Status: Acute (2) Acute cholecystitis Status: Acute (3) Sepsis Status: Acute DS: Summary Hospital Course: This is a 53-year-old female initially presented with abdominal pain. CT scan of the abdomen showed gallbladder wall thickening with possible gallbladder/ cystic duct obstruction. Patient came in with sepsis based on leukocytosis, tachycardia and possible cholecystitis. Patient was started on Zosyn and Flagyl. She was then switched to oral Levaquin. General surgery and gastroenterology were consulted, biliary scan was done which showed cholecystitis. General surgery performed a laparoscopic cholecystectomy 2017. After several days, pain is better, sepsis was controlled, tolerating diet, patient was cleared by surgery for discharge with a ANDREI drain to be removed in the office 2-3 days post discharge. She will finish her course of Levaquin. - Time Spent with Patient Total time spent providing and/or coordinating discharge services: Greater than 30 minutes - Quality: VTE Deep Vein Thrombosis/Pulmonary Embolism Present on Admission: No Exam Vital signs: Vital Signs 05/13/18 16:00 05/13/18 20:00 05/13/18 20:14 Temperature 97.9 F 98.6 F Pulse Rate 84 86 81 Respiratory Rate 16 18 Blood Pressure 141/70 H 120/60 Pulse Oximetry 98 98 05/13/18 21:00 05/14/18 00:00 05/14/18 00:05 Temperature 98.2 F Pulse Rate 77 70 Respiratory Rate 18 18 Blood Pressure 117/58 L Pulse Oximetry 96 05/14/18 04:00 05/14/18 08:00 Temperature 98.5 F 98.3 F Pulse Rate 72 74 Respiratory Rate 18 18 Blood Pressure 134/71 130/60 Pulse Oximetry 97 97 Intake & Output 05/13/18 05/14/18 05/14/18 18:59 06:59 18:59 Intake Total 50 / 50 850 / 850 Output Total 30 / 30 Balance 50 / 50 820 / 820 Intake: IV 50 / 50 Zosyn 3.375 GM Premix 50 ML @ 50 / 50 100 mls/hr IV.SIG Q6H ANTONIO Rx#: [id number] Oral 850 / 850 Output: Wound Drainage 30 # 1 Right Lateral Abdomen 30 / 30 Other: # Voids 5 Date of Last Bowel Movement 05/09/18 05/09/18 05/14/18 # Bowel Movements 1 Narrative: S> Mild abdominal pain, no nausea or vomiting. Tolerating diet. O> Not in distress, well-nourished, looks stated age Normal rate and regular rhythm, no murmurs gallops or rubs appreciated. Clear to auscultation and symmetric bilaterally, normal respiratory effort. Normal bowel sounds, soft, non-tender, sutures in place, ANDREI drain in place. Extremities without clubbing, cyanosis, or edema. No rash of generalized distribution. Skin is warm and dry. AAO x3, no cranial nerve deficits, moves all 4 extremities, no focal neurologic deficits Normal mood, appropriate affect Results Procedures completed during hospitalization: Laparoscopic cholecystectomy 05/12/2018. Labs on day of discharge: Labs from last 24 hours 05/14/18 06:17 Sodium 140 Potassium 3.7 Chloride 107 Carbon Dioxide 27.5 Anion Gap 6 BUN 16 Creatinine 0.60 Estimated GFR Greater than 89 Random Glucose 119 H Calcium 8.7 Preliminary micro results at discharge 05/10/18 18:00 Aerobic Blood Culture - Preliminary Blood - Peripheral No growth in 4 days Anaerobic Blood Culture - Preliminary No growth in 4 days 05/10/18 18:00 Aerobic Blood Culture - Preliminary Blood - Peripheral No growth in 4 days Anaerobic Blood Culture - Preliminary No growth in 4 days - Impressions ITS Impressions GI Procedure 05/11/18 00:00 CONCLUSION: Normal appearance of the intra and extrahepatic biliary tree without obvious stone disease. Abdomen/Pelvis CT 05/11/18 07:46 CONCLUSION: 1. Interval worsening in the appearance of the gallbladder. The lumen remains distended with mural thickening and worsening pericholecystic fluid. Rim calcified 1.2 cm stone remains in the gallbladder neck. Spectrum of findings are characteristic of an acute cholecystitis. Patient would likely benefit from cholecystostomy tube placement. 2. Biliary stent remains stable in position and appropriately bridges the CBD and duodenum. Slight increase in the expected nondependent biliary air. 3. Mild atelectatic changes in both lung bases. This may be due to limited inspiratory effort associated with the patient's abdominal pain. 4. Minimal diverticular disease of the descending colon without diverticulitis. Discharge Plan - Discharge Disposition Patient Disposition: 01 Discharge Home - Discharge Condition Condition: Good - Discharge Order Discharge Orders: Discharge Order (Routine); Ordered 05/14/18 Ordered By: Alexandra Saleem - Physicians Team Primary Care Provider: Primary Care Physici,No Attending Provider: Alexandra Saleem Other Providers: Amie Cary MD ; Deion Moeller MD ; Surgeons,[facility]
[2018-05-14 14:56] VITALS: BP 126/66; PULSE 93; RESP 20; TEMP 98.2; O2SAT 98
== END 2018-05-14 15:11 | disposition home or self-care (01) ==
LOC: PHED 13:26 → PHEDA 16:27 → PH3 17:09 → HSDI 05-11 11:22 → N06 05-11 16:17
PROVIDERS: ADMIT Hospitalist; ATTEND Hospitalist